=== PATIENT | male | born 1945 | race Caucasian/White ===

== ENCOUNTER 2016-05-20 22:30 | Emergency (ER) | payer OTHER ==
--- NOTE | 2016-05-20 22:45 | PDOC ---
History of Present Illness - General History Source: EMS, Family Exam Limitations: No Limitations - History of Present Illness Initial Comments: 05/21/16 00:36 The patient is a 70 year old male brought via EMS and presenting with daughter, with a significant past medical history of HTN, diabetes (no meds), CVA (x2, last one 4 months ago), HLD, COPD, CAD s/p cardiac stents (x5), bowel and fecal incontinence, who presents to the emergency department with a headache and high blood pressure onset today. The daughter also reports frequency and foul smelling urine. Daughter notes that the patient's blood pressure was 190/100 at home. The patient saw his PMD on 05/10/2016 whom prescribed him azithromycin for chest congestion and sent referrals for cardiology, urology and gastrology, for which all appointments are pending. The patient currently ambulates with the assistance of a walker but he does require a wheelchair. The patient denies chest pain, shortness of breath, and dizziness. Denies fever , chills, nausea, vomit, diarrhea and constipation. Allergies: aspirin Past surgical history: Cardiac stents (x5) Social history: No alcohol, tobacco or drug use reported PMD - Dr. Debbie Adam <Gregory Aggarwal - Last Filed: 05/21/16 00:27> <Sarina Jose - Last Filed: 05/21/16 02:01> - General Chief Complaint: Blood Pressure Problem Stated Complaint: BLOOD PRESSURE PROBLEM Time Seen by Provider: 05/20/16 22:44 Past History <Gregory Aggarwal - Last Filed: 05/21/16 00:27> - Past Medical History Asthma: Yes Cardiac Disorders: Yes (x5 stents) COPD: Yes Dementia: Yes Diabetes: Yes HTN: Yes Hypercholesterolemia: Yes Psychiatric Problems: Yes - Surgical History Cardiac Surgery: ([id number]) - Immunization History Immunization Up to Date: Yes - Psycho/Social/Smoking Cessation Hx Anxiety: No Suicidal Ideation: No Smoking History: Unknown if ever smoked Have you smoked in the past 12 months: No Hx Alcohol Use: No Drug/Substance Use Hx: No Substance Use Type: None Hx Substance Use Treatment: No <Sarina Jose - Last Filed: 05/21/16 02:01> - Past Medical History Allergies/Adverse Reactions: Allergies Allergy/AdvReac Type Severity Reaction Status Date / Time aspirin AdvReac Verified 05/20/16 22:37 Home Medications: Ambulatory Orders Clopidogrel Bisulfate [Clopidogrel] 75 mg PO DAILY 02/24/15 Simvastatin [Zocor -] 20 mg PO HS 02/24/15 Tamsulosin HCl 0.4 mg PO DAILY 02/24/15 Donepezil HCl [Aricept -] 10 mg PO HS 04/18/15 Lisinopril [Prinivil -] 20 mg PO DAILY 04/18/15 Albuterol Sulfate Inhaler - [Ventolin Hfa Inhaler -] 1 - 2 inh PO Q4H PRN Divalproex *ER* [Depakote *ER* -] 500 mg PO BID 08/15/15 Pantoprazole Sodium [Protonix] 40 mg PO DAILY 08/15/15 Phenytoin Na Extended [Dilantin -] 100 mg PO TID 05/20/16 Simvastatin [Zocor -] 20 mg PO HS 05/20/16 Tamsulosin HCl [Flomax] 0.4 mg PO DAILY 05/20/16 Review of Systems - Review of Systems Able to Perform ROS?: Yes Comments:: 05/21/16 00:37 GENERAL/CONSTITUTIONAL: No fever or chills. No weakness. HEAD, EYES, EARS, NOSE AND THROAT: No change in vision. No ear pain or discharge. No sore throat. CARDIOVASCULAR: No chest pain or shortness of breath RESPIRATORY: No cough, wheezing, or hemoptysis. GASTROINTESTINAL: No nausea, vomiting, diarrhea or constipation. GENITOURINARY: +Frequency and foul smelling urine. No dysuria MUSCULOSKELETAL: No joint or muscle swelling or pain. No neck or back pain. SKIN: No rash NEUROLOGIC: +Headache. No vertigo, loss of consciousness, or change in strength/ sensation. ENDOCRINE: No increased thirst. No abnormal weight change HEMATOLOGIC/LYMPHATIC: No anemia, easy bleeding, or history of blood clots. ALLERGIC/IMMUNOLOGIC: No hives or skin allergy. <Gregory Aggarwal - Last Filed: 05/21/16 00:27> *Physical Exam - Vital Signs Last Vital Signs Temp Pulse Resp BP Pulse Ox 97.9 F 60 18 220/110 99 05/20/16 22:43 05/20/16 22:43 05/20/16 22:43 05/20/16 22:43 05/20/16 22:43 - Physical Exam Comments: 05/21/16 00:37 GENERAL: Awake, alert, in no acute distress HEAD: No signs of trauma, normocephalic, atraumatic EYES: PERRLA, EOMI, sclera anicteric, conjunctiva clear ENT: Auricles normal inspection, hearing grossly normal, nares patent, oropharynx clear without exudates. Moist mucosa NECK: Normal ROM, supple, no lymphadenopathy, JVD, or masses LUNGS: No distress, clear to auscultation bilaterally HEART: Regular rate and rhythm, normal S1 and S2, no murmurs, rubs or gallops, peripheral pulses normal and equal bilaterally. ABDOMEN: Soft, nontender, normoactive bowel sounds. No guarding, no rebound. No masses EXTREMITIES: Normal inspection, Normal range of motion, no edema. No clubbing or cyanosis. NEUROLOGICAL: Cranial nerves II through XII grossly intact. No focal sensorimotor deficits SKIN: Warm, Dry, normal turgor, no rashes or lesions noted. <Gregory Aggarwal - Last Filed: 05/21/16 00:27> - Vital Signs Last Vital Signs Temp Pulse Resp BP Pulse Ox 97.9 F 60 18 220/110 99 05/20/16 22:43 05/20/16 22:43 05/20/16 22:43 05/20/16 22:43 05/20/16 22:43 <Sarina Jose - Last Filed: 05/21/16 02:01> ED Treatment Course - LABORATORY CBC & Chemistry Diagram: 05/20/16 23:20 05/20/16 23:20 - ADDITIONAL ORDERS Additional order review: Laboratory Results 05/20/16 23:20 Sodium 142 Potassium 3.8 Chloride 102 Carbon Dioxide 31 Anion Gap 9 BUN 15 D Creatinine 0.9 D Creat Clearance w eGFR > 60 Random Glucose 89 D Calcium 8.3 L Magnesium 2.3 Total Bilirubin 0.3 AST 26 D ALT 31 Alkaline Phosphatase 127 H D Creatine Kinase 51 Troponin I 0.02 Total Protein 6.8 Albumin 3.1 L 05/20/16 23:20 RBC 4.89 MCV 92.6 MCHC 33.5 RDW 14.6 D MPV 7.8 Neutrophils % 43.7 Lymphocytes % 42.6 H D Monocytes % 9.0 Eosinophils % 3.8 Basophils % 0.9 - Medications Given in the ED: ED Medications Discontinued Medications Generic Name Dose Route Start Last Admin Trade Name Michelle PRN Reason Stop Dose Admin Acetaminophen 1,000 mg 05/20/16 22:47 05/20/16 23:24 Ofirmev Injection - IVPB 05/20/16 22:48 1,000 mg ONCE ONE Administration Diphenhydramine HCl 25 mg 05/20/16 22:47 05/20/16 23:24 Benadryl Injection - IVPUSH 05/20/16 22:48 25 mg ONCE ONE Administration Metoclopramide HCl 10 mg 05/20/16 22:47 05/20/16 23:24 Reglan Injection - IVPB 05/20/16 22:48 10 mg ONCE ONE Administration <Gregory Aggarwal - Last Filed: 05/21/16 00:27> - LABORATORY CBC & Chemistry Diagram: 05/20/16 23:20 05/20/16 23:20 <Sarina Jose - Last Filed: 05/21/16 02:01> Medical Decision Making - Medical Decision Making 05/21/16 00:48 70 yo male brought in by daughter because she takes his BP at home and it was elevated, he also had c/o headache. He is alert and speaks to daughter in Khmer -he has no current chest pain. Apparently yesterday he had a fleeting episode of chest pain, none today. ekg is sinus breonna @ 59bpm, old inferior infarct. No change from previous ekg of 09/09/2015. negative cardiac enzymes -pt has h/o dementia and lives w daughter. He is ambulating less and less and recently he was seen by his PCP on 05/10/26 and a wheelchair was ordered for him. -PMH cva,dementia,type 2 diabetes,HTN,hyperlipidemia,urinary and fecal incontinence(wears diaper) blood pressure now 160/80 without any additional blood pressure meds -ROS : daughter said he had some increased frequency. Urinalysis (pt was straight cath) showed rbcs but no bacteria or wbc cbc is normal -pt had no new extremity weakness,no facial droop,no slurred speech 05/21/16 01:22 05/21/16 01:59 pt;s headache resolved, BP came down 160/80 imp tension headache/essential HTN <Sarina Jose - Last Filed: 05/21/16 02:01> *DC/Admit/Observation/Transfer - Attestations Scribe Attestion: 05/21/16 00:38 Documentation prepared by Gregory Aggarwal, acting as expert medical writer for Sarina Jose MD. <Gregory Aggarwal - Last Filed: 05/21/16 00:27> <Sarina Jose - Last Filed: 05/21/16 02:01> Diagnosis at time of Disposition: Hypertension Qualifiers: Hypertension type: essential hypertension Qualified Code(s): I10 - Essential ( primary) hypertension - Discharge Dispostion Disposition: HOME Condition at time of disposition: Stable - Referrals Referrals: Debbie Adam [Primary Care Provider] - - Patient Instructions Printed Discharge Instructions: DI for High Blood Pressure Additional Instructions: -please followup with your doctor this week -take your regular medications -return for recurrent symptoms
[2016-05-20] MEDS ORDERED: ACETAMINOPHEN 1000 MG/100 ML VIAL (NON FORMULARY) IVPB ONE (22:47)
[2016-05-20] MEDS ORDERED: METOCLOPRAMIDE HCL INJECTION 10 MG/2 ML VIAL IVPB ONE (22:47)
[2016-05-20 22:53] VITALS: TEMP 97.9; BMI 26.2
[2016-05-20] MEDS ORDERED: METOCLOPRAMIDE HCL INJECTION 10 MG/2 ML VIAL ONE (23:00)
[2016-05-20] MEDS ORDERED: ACETAMINOPHEN INJECTION 100 ML IVPB ONE (23:00)
[2016-05-20 23:27] LABS: BASOPHIL 0.9 % (0-2.0); EOSINOPHIL 3.8 % (0-4.5); MCHC 33.5 g/dl (32.0-35.9); MEAN CELL VOLUME 92.6 fl (80-96); MEAN PLT VOLUME 7.8 fl (7.5-11.1); NEUTROPHILS 43.7 % (42.8-82.8); PLATELET COUNT 350 K/MM3 (134-434); RDW 14.6 % (11.9-15.9); WHITE BLOOD COUNT 7.1 K/mm3 (4.0-10.0)
[2016-05-21 00:19] LABS: ALBUMIN 3.1 g/dl (3.4-5.0); ANION GAP 9 (8-16); BILIRUBIN,TOTAL 0.3 mg/dL (0.2-1.0); CALCIUM 8.3 mg/dL (8.5-10.1); CO2 31 mmol/L (21-32); CREATININE 0.9 mg/dL (0.7-1.3); GLUCOSE,RANDOM 89 mg/dL (74-106); MAGNESIUM 2.3 mg/dL (1.8-2.4); SGOT/AST 26 U/L (15-37); SGPT/ALT 31 U/L (12-78); TOT PROT 6.8 g/dl (6.4-8.2)
[2016-05-21 00:21] LABS: ALK PHOS 127 U/L (45-117); TROPONIN I 0.02 ng/ml (0.00-0.05)
[2016-05-21 00:24] LABS: URINE APPEARANCE CLEAR; URINE BILIRUBIN NEGATIVE (NEGATIVE); URINE COLOR STRAW; URINE GLUCOSE (UA) NEGATIVE (NEGATIVE); URINE KETONE NEGATIVE (NEGATIVE); URINE LEUK ESTERASE NEGATIVE (NEGATIVE); URINE NITRITE NEGATIVE (NEGATIVE); URINE PROTEIN NEGATIVE (NEGATIVE); URINE UROBILINOGEN NEGATIVE E.U./dl (0.2-1.0)
[2016-05-21 00:24] LABS: INR 1.11 (0.82-1.09); PROTHROMBIN TIME (PATIENT) 12.2 SEC (9.98-11.88)
[2016-05-21 00:29] LABS: URINE BLOOD 3+ (NEGATIVE)
[2016-05-21 00:35] LABS: URINE MUCUS RARE; URINE RBC 259 /hpf (0-3); URINE WBC 4 /hpf (3-5)
[2016-05-21 02:22] VITALS: BP 150/73; PULSE 66
--- NOTE | 2016-05-21 10:26 | EKG ---
Test Reason : Blood Pressure : / mmHG Vent. Rate : 059 BPM Atrial Rate : 059 BPM P-R Int : 164 ms QRS Dur : 112 ms QT Int : 418 ms P-R-T Axes : 052 055 011 degrees QTc Int : 413 ms SINUS BRADYCARDIA POSSIBLE LEFT ATRIAL ENLARGEMENT POSSIBLE INFERIOR INFARCT (CITED ON OR BEFORE 24-FEB-2015) ABNORMAL ECG WHEN COMPARED WITH ECG OF 09-SEP-2015 04:34, PREMATURE VENTRICULAR COMPLEXES ARE NO LONGER PRESENT Confirmed by JOHANNY ALMANZA MD ([id number]) on 05/21/2016 10:26:27 AM Referred By: Confirmed By:JOHANNY ALMANZA MD
== END 2016-05-21 02:22 | disposition home or self-care (01) ==
LOC: JER 22:30
PROC: 3E033NZ Introduction of Analgesics, Hypnotics, Sedatives into Peripheral Vein, Percutaneous Approach (ICD-10-PCS; principal; 2016-05-20)
PROC: 3E033GC Introduction of Other Therapeutic Substance into Peripheral Vein, Percutaneous Approach (ICD-10-PCS; 2016-05-20)
DX: I10 Essential (primary) hypertension (principal); I25.10 Atherosclerotic heart disease of native coronary artery without angina pectoris; Z95.5 Presence of coronary angioplasty implant and graft; E11.9 Type 2 diabetes mellitus without complications; J44.9 Chronic obstructive pulmonary disease, unspecified; F03.90 Unspecified dementia, unspecified severity, without behavioral disturbance, psychotic disturbance, mood disturbance, and anxiety; Z86.73 Personal history of transient ischemic attack (TIA), and cerebral infarction without residual deficits
CPT/HCPCS: 36415; 71020-TC; 80053; 81003; 81015; 82550; 83735; 84484; 85025; 85610; 87086; 93005; 93010; 96374; 96375; 99282-25

== ENCOUNTER 2016-06-05 18:22 | Emergency (ER) | payer OTHER ==
--- NOTE | 2016-06-05 18:27 | PDOC ---
Rapid Medical Evaluation Time Seen by Provider: 06/05/16 18:24 Medical Evaluation: Allergies Allergy/AdvReac Type Severity Reaction Status Date / Time aspirin AdvReac Verified 05/20/16 22:37 06/05/16 18:25 70 yo M w/PMH dementia/Alzheimer's/parlinsons with his daughter c/o SOB since yesterday. Took a few nebulizer w/o much relief. No cp. Albuterol neb tx given in triage/ with relief
[2016-06-05 18:28] VITALS: BMI 23.2
[2016-06-05] MEDS ORDERED: ALBUTEROL SO4 0.083% IH SOL 2.5 MG/3 ML VIAL.NEB. NEB ONE ×2 (19:02→20:02)
[2016-06-05] MEDS ORDERED: MAGNESIUM SULF 50% (8.12 MEQ/2 ML-1 GM VIAL) IVPB ONE (20:02)
[2016-06-05] MEDS ORDERED: ALBUTEROL SO4 2.5/IPRATROPIUM 0.5 INH SOL 3 ML VIAL.NEB. NEB ONE ×3 (20:02→21:30)
[2016-06-05] MEDS ORDERED: ALBUTEROL SO4 2.5/IPRATROPIUM 0.5 INH SOL 3 ML VIAL.NEB. NEB STA ×2 (20:03→23:16)
--- NOTE | 2016-06-05 20:26 | PDOC ---
History of Present Illness - General History Source: Family (daughter ) Exam Limitations: Clinical Condition - History of Present Illness Initial Comments: 06/05/16 20:32 The patient is a 70 year old male with significant past medical history of dementia, CAD s/p cardiac stents x5, hypertension, hyperlipidemia, diabetes (no medications), CVA (x2, last one 4 months ago), COPD, bowel and fecal incontinence who presents to the ED with daughter for 2 days of SOB. As per daughter, at bedside, patient developed some SOB that worsened today. Patient took several nebulizer treatments today with no improvement. Daughter also reports associated dry cough and chest tightness. Daughter denies fever, chest pain, chills, diaphoresis, or lightheadedness. Patient visited PMD today where he was given a 5 days course of prednisone 50mg. Patient took first dose today with minimal improvement. Upon arrival, during triage, patient was given an albuterol treatment with mild relief. Daughter denies any sick contacts. Allergies: aspirin Social History: No alcohol, tobacco, or drug use reported. Past Surgical History: s/p cardiac stents x5 PCP: Dr. Debbie Adam <Ester Harmon - Last Filed: 06/05/16 20:32> - General History Source: Patient, Family <Gregory Shabazz - Last Filed: 06/05/16 23:23> - General Chief Complaint: Shortness of Breath Stated Complaint: SHORTNESS OF BREATH Time Seen by Provider: 06/05/16 18:24 Past History <Ester Harmon - Last Filed: 06/05/16 20:32> - Past Medical History Asthma: Yes Cardiac Disorders: Yes (x5 stents) COPD: Yes Dementia: Yes Diabetes: Yes HTN: Yes Hypercholesterolemia: Yes Psychiatric Problems: Yes (PARKINSONS) - Surgical History Cardiac Surgery: Yes ([id number]) - Immunization History Immunization Up to Date: Yes - Psycho/Social/Smoking Cessation Hx Anxiety: No Suicidal Ideation: No Smoking History: Never smoked Have you smoked in the past 12 months: No Information on smoking cessation initiated: No Hx Alcohol Use: No Drug/Substance Use Hx: No Substance Use Type: None Hx Substance Use Treatment: No <Gregory Shabazz - Last Filed: 06/05/16 23:23> - Past Medical History Allergies/Adverse Reactions: Allergies Allergy/AdvReac Type Severity Reaction Status Date / Time aspirin AdvReac Verified 06/05/16 18:28 Home Medications: Ambulatory Orders Clopidogrel Bisulfate [Clopidogrel] 75 mg PO DAILY 02/24/15 Simvastatin [Zocor -] 20 mg PO HS 02/24/15 Tamsulosin HCl 0.4 mg PO DAILY 02/24/15 Donepezil HCl [Aricept -] 10 mg PO HS 04/18/15 Lisinopril [Prinivil -] 20 mg PO DAILY 04/18/15 Albuterol Sulfate Inhaler - [Ventolin Hfa Inhaler -] 1 - 2 inh PO Q4H PRN Divalproex *ER* [Depakote *ER* -] 500 mg PO BID 08/15/15 Pantoprazole Sodium [Protonix] 40 mg PO DAILY 08/15/15 Phenytoin Na Extended [Dilantin -] 100 mg PO TID 05/20/16 Albuterol 2.5/Ipratropium 0.5 [Duoneb -] 1 neb NEB Q4H #60 vial 06/05/16 Budesonide/Formeterol Fumarate [SYMBICORT 160/4.5mcg -] 1 inh PO BID #1 cannister 06/05/16 Review of Systems - Review of Systems Able to Perform ROS?: No Comments:: 06/05/16 20:33 Limited due to patients clinical condition <EdenEster - Last Filed: 06/05/16 20:32> *Physical Exam - Vital Signs Last Vital Signs Temp Pulse Resp BP Pulse Ox 98.9 F 92 H 20 161/85 96 06/05/16 18:24 06/05/16 18:24 06/05/16 18:24 06/05/16 18:24 06/05/16 18:24 - Physical Exam Comments: 06/05/16 20:33 GENERAL: Well developed, well nourished. Awake and alert. No acute distress. HEENT: Normocephalic, atraumatic. PERRLA, EOMI. No conjunctival pallor. Sclera are non- icteric. Moist mucous membranes. Oropharynx is clear. NECK: Supple. Full ROM. No JVD. Carotid pulses 2+ and symmetric, without bruits. No thyromegaly. No lymphadenopathy. CARDIOVASCULAR: Regular rate and rhythm. No murmurs, rubs, or gallops. Distal pulses are 2+ and symmetric. PULMONARY: No evidence of respiratory distress. Decreased breath sounds bilaterally. Diffuse wheezing and rhonchi bilaterally. ABDOMINAL: Soft. Non-tender. Non-distended. No rebound or guarding. No organomegaly. Normoactive bowel sounds. MUSCULOSKELETAL No bony deformities or tenderness. No CVA tenderness. EXTREMITIES: No cyanosis. No clubbing. No edema. No calf tenderness. SKIN: Warm and dry. Normal capillary refill. No rashes. No jaundice. NEUROLOGICAL: Pt is alert, awake, oriented. Answering questions slowly, but appropriately. <Ester Harmon - Last Filed: 06/05/16 20:32> - Vital Signs Last Vital Signs Temp Pulse Resp BP Pulse Ox 98.9 F 92 H 20 161/85 96 06/05/16 18:24 06/05/16 18:24 06/05/16 18:24 06/05/16 18:24 06/05/16 18:24 <Gregory Shabazz - Last Filed: 06/05/16 23:23> ED Treatment Course - LABORATORY CBC & Chemistry Diagram: 06/05/16 20:20 06/05/16 20:20 - Medications Given in the ED: ED Medications Discontinued Medications Generic Name Dose Route Start Last Admin Trade Name Freq PRN Reason Stop Dose Admin Albuterol Sulfate 1 amp 06/05/16 19:02 06/05/16 20:06 Ventolin 0.083% Nebulizer Soln - NEB 06/05/16 19:03 1 amp ONCE ONE Administration <Ester Harmon - Last Filed: 06/05/16 20:32> - LABORATORY CBC & Chemistry Diagram: 06/05/16 20:20 06/05/16 20:20 - Medications Given in the ED: ED Medications Discontinued Medications Generic Name Dose Route Start Last Admin Trade Name Freq PRN Reason Stop Dose Admin Albuterol Sulfate 1 amp 06/05/16 19:02 06/05/16 20:06 Ventolin 0.083% Nebulizer Soln - NEB 06/05/16 19:03 1 amp ONCE ONE Administration <Gregory Shabazz - Last Filed: 06/05/16 23:23> Medical Decision Making - Medical Decision Making 06/05/16 23:22 Dr. Shabazz: The scribe's documentation has been prepared under my direction and personally reviewed by me in its entirery. I confirm that the note above accurately reflects all work, treatment, procedures, and medical decision making performed by me. patient now feels better after treatment. Pt to be discharged. Rx Duoneb. Pt to follow up with his pcp. <Gregory Shabazz - Last Filed: 06/05/16 23:23> *DC/Admit/Observation/Transfer - Attestations Scribe Attestion: 06/05/16 20:33 Documentation prepared by Ester Harmon, acting as medical physics teacher for Gregory Shabazz MD <Ester Harmon - Last Filed: 06/05/16 20:32> - Discharge Dispostion Admit: No <Gregory Shabazz - Last Filed: 06/05/16 23:23> Diagnosis at time of Disposition: Shortness of breath COPD (chronic obstructive pulmonary disease) Qualifiers: COPD type: unspecified COPD Qualified Code(s): J44.9 - Chronic obstructive pulmonary disease, unspecified - Discharge Dispostion Disposition: HOME Condition at time of disposition: Improved - Prescriptions Prescriptions: Albuterol 2.5/Ipratropium 0.5 [Duoneb -] 1 neb NEB Q4H #60 vial Budesonide/Formeterol Fumarate [SYMBICORT 160/4.5mcg -] 1 inh PO BID #1 cannister - Referrals Referrals: Debbie Adam [Primary Care Provider] - - Patient Instructions Printed Discharge Instructions: DI for Chronic Obstructive Pulmonary Disease Print Language: MONGOLIAN
[2016-06-05 20:30] LABS: BASOPHIL 0.9 % (0-2.0); EOSINOPHIL 0.7 % (0-4.5); MCH 30.3 pg (25.7-33.7); MCHC 32.8 g/dl (32.0-35.9); MEAN CELL VOLUME 92.4 fl (80-96); MEAN PLT VOLUME 8.6 fl (7.5-11.1); NEUTROPHILS 87.7 % (42.8-82.8); PLATELET COUNT 264 K/MM3 (134-434); WHITE BLOOD COUNT 8.5 K/mm3 (4.0-10.0)
[2016-06-05 20:55] LABS: INR 1.03 (0.82-1.09); PROTHROMBIN TIME (PATIENT) 11.3 SEC (9.98-11.88)
[2016-06-05 21:08] LABS: ALBUMIN 3.4 g/dl (3.4-5.0); ALK PHOS 149 U/L (45-117); ANION GAP 10 (8-16); BILIRUBIN,TOTAL 0.3 mg/dL (0.2-1.0); CALCIUM 8.9 mg/dL (8.5-10.1); CO2 31 mmol/L (21-32); CREATININE 1.1 mg/dL (0.7-1.3); GLUCOSE,RANDOM 197 mg/dL (74-106); SGOT/AST 36 U/L (15-37); SGPT/ALT 56 U/L (12-78); TOT PROT 7.4 g/dl (6.4-8.2)
[2016-06-05] MEDS ORDERED: MAGNESIUM SULF 50% (8.12 MEQ/2 ML-1 GM VIAL) ONE (21:09)
[2016-06-05 23:53] VITALS: BP 151/90; PULSE 95; TEMP 98.1
== END 2016-06-05 23:53 | disposition home or self-care (01) ==
LOC: JER 18:22
PROC: 3E0F7GC Introduction of Other Therapeutic Substance into Respiratory Tract, Via Natural or Artificial Opening (ICD-10-PCS; principal; 2016-06-05)
PROC: 3E0F7GC Introduction of Other Therapeutic Substance into Respiratory Tract, Via Natural or Artificial Opening (ICD-10-PCS; 2016-06-05)
PROC: 3E0F7GC Introduction of Other Therapeutic Substance into Respiratory Tract, Via Natural or Artificial Opening (ICD-10-PCS; 2016-06-05)
PROC: 3E0F7GC Introduction of Other Therapeutic Substance into Respiratory Tract, Via Natural or Artificial Opening (ICD-10-PCS; 2016-06-05)
PROC: 3E033GC Introduction of Other Therapeutic Substance into Peripheral Vein, Percutaneous Approach (ICD-10-PCS; 2016-06-05)
DX: J44.9 Chronic obstructive pulmonary disease, unspecified (principal); I25.10 Atherosclerotic heart disease of native coronary artery without angina pectoris; I10 Essential (primary) hypertension; Z95.5 Presence of coronary angioplasty implant and graft; J45.909 Unspecified asthma, uncomplicated; E11.9 Type 2 diabetes mellitus without complications; R78.0 Finding of alcohol in blood; G30.8 Other Alzheimer's disease; G20 Parkinson's disease; F02.80 Dementia in other diseases classified elsewhere, unspecified severity, without behavioral disturbance, psychotic disturbance, mood disturbance, and anxiety
CPT/HCPCS: 36415; 71020-TC; 80053; 85025; 85610; 99285-25

== ENCOUNTER 2016-06-21 17:48 | Inpatient (IN) | payer OTHER ==
--- NOTE | 2016-06-21 17:58 | PDOC ---
History of Present Illness - General Chief Complaint: Shortness of Breath Stated Complaint: THROAT SWELLING Time Seen by Provider: 06/21/16 17:58 History Source: Patient, Family (daughter) Exam Limitations: Clinical Condition - History of Present Illness Initial Comments: 06/21/16 18:23 The patient is a 70 year old male accompanied by his daughter with significant past medical history of diabetes, hypertension, CAD, OR x 2, cardiac stents x5 ( the latest 07/2014 proximal LAD; done at [facility]), Alzheimers, BPH, hyperlipidemia, gastric ulcer, who presents to the emergency department complaining of SOB that started yesterday in the evening. His daughter states that he took nebulizers and Oxygen without any improvement. He was recently seen in ED 2 weeks ago with the same complaint. He denies chest pain, palpitations, abdominal pain, dysuria, N/V, diarrhea, constipation. He denies fever, chills. Past History - Past Medical History Allergies/Adverse Reactions: Allergies Allergy/AdvReac Type Severity Reaction Status Date / Time aspirin AdvReac Verified 06/05/16 18:28 Home Medications: Ambulatory Orders Clopidogrel Bisulfate [Clopidogrel] 75 mg PO DAILY 02/24/15 Simvastatin [Zocor -] 20 mg PO HS 02/24/15 Tamsulosin HCl 0.4 mg PO DAILY 02/24/15 Donepezil HCl [Aricept -] 10 mg PO HS 04/18/15 Lisinopril [Prinivil -] 20 mg PO DAILY 04/18/15 Albuterol Sulfate Inhaler - [Ventolin Hfa Inhaler -] 1 - 2 inh PO Q4H PRN Divalproex *ER* [Depakote *ER* -] 500 mg PO BID 08/15/15 Pantoprazole Sodium [Protonix] 40 mg PO DAILY 08/15/15 Phenytoin Na Extended [Dilantin -] 100 mg PO TID 05/20/16 Albuterol 2.5/Ipratropium 0.5 [Duoneb -] 1 neb NEB Q4H #60 vial 06/05/16 Budesonide/Formeterol Fumarate [SYMBICORT 160/4.5mcg -] 1 inh PO BID #1 cannister 06/05/16 Aspirin [ASA -] 81 mg PO DAILY 03/17/17 Nifedipine [Nifedipine ER] 60 mg PO DAILY 06/21/16 Asthma: Yes Cardiac Disorders: Yes (x5 stents) COPD: Yes Dementia: Yes Diabetes: Yes HTN: Yes Hypercholesterolemia: Yes Psychiatric Problems: Yes (PARKINSONS) - Surgical History Cardiac Surgery: Yes ([id number]) - Immunization History Immunization Up to Date: Yes - Psycho/Social/Smoking Cessation Hx Anxiety: No Suicidal Ideation: No Smoking History: Never smoked Have you smoked in the past 12 months: No Hx Alcohol Use: No Drug/Substance Use Hx: No Substance Use Type: None Hx Substance Use Treatment: No Review of Systems - Review of Systems Able to Perform ROS?: Yes Comments:: 06/21/16 18:47 REVIEW OF SYSTEMS limited, pt is moderate distress due to SOB CONSTITUTIONAL: Absent: fever, chills, diaphoresis, generalized weakness HEENT: Absent: rhinorrhea, nasal congestion, throat pain CARDIOVASCULAR: Absent: chest pain, syncope, palpitations, irregular heart rate RESPIRATORY: shortness of breath, cough, wheezing, Absent: dyspnea with exertion, GASTROINTESTINAL: Absent: abdominal pain, abdominal distension, nausea, vomiting, diarrhea, constipation GENITOURINARY: Absent: dysuria, frequency, urgency, hesitancy, hematuria, flank pain, genital pain NEUROLOGIC: Absent: headache, unsteady gait, bladder or bowel incontinence Is the patient limited Nepali proficient: Yes *Physical Exam - Physical Exam Comments: 06/21/16 18:51 GENERAL: The patient is awake, alert, and fully oriented, in moderate respiratory distress. HEAD: Normal with no signs of trauma. EYES: PERRL, extraocular movements intact, sclera anicteric, conjunctiva clear. No ptosis. ENT: oropharynx clear without exudates, moist mucous membranes. NECK: Trachea midline, full range of motion, supple. LUNGS: Breath sounds equal, wheezing bilaterally, accessory muscle use. HEART: Regular rate and rhythm, S1, S2 without murmur, rub or gallop. ABDOMEN: Soft, nontender, nondistended, normoactive bowel sounds, no guarding, no rebound. EXTREMITIES:no edema. NEUROLOGICAL: Normal speech, no facial asymmetry, gait not observed. PSYCH: Normal mood, normal affect. SKIN: Warm, dry, normal turgor, no rashes or lesions noted 06/21/16 19:19 ED Treatment Course - LABORATORY CBC & Chemistry Diagram: 06/21/16 18:54 06/21/16 18:54 Medical Decision Making - Medical Decision Making 06/21/16 19:10 The pt is complaining of SOB and cough presents with COPD exacerbation. He was given AZT, Solu-medrol, Duonebs, BI-Pap. We ordered CBC, CMP, Influenza swab, Blood cultures. 06/21/16 19:18 The plan is to admit the pt to the hospital. *DC/Admit/Observation/Transfer Diagnosis at time of Disposition: Shortness of breath - Discharge Dispostion Condition at time of disposition: Stable Admit: Yes - Referrals Referrals: Debbie Adam [Primary Care Provider] -
[2016-06-21] MEDS ORDERED: ALBUTEROL SO4 2.5/IPRATROPIUM 0.5 INH SOL 3 ML VIAL.NEB. NEB ONE (18:28)
[2016-06-21] MEDS ORDERED: methylPREDNISolone NA SUCC 125 MG/2 ML VIAL IVPB ONE (18:28)
[2016-06-21] MEDS ORDERED: ALBUTEROL SO4 2.5/IPRATROPIUM 0.5 INH SOL 3 ML VIAL.NEB. NEB PRN (18:34)
[2016-06-21] MEDS ORDERED: methylPREDNISolone NA SUCC 125 MG/2 ML VIAL ONE (18:57)
[2016-06-21] MEDS ORDERED: AZITHROMYCIN IVPB 500 MG in DEXTROSE 5%-WATER - 250 ML IVPB ONE (19:02)
[2016-06-21 19:07] LABS: MCH 30.9 pg (25.7-33.7); MCHC 33.4 g/dl (32.0-35.9); MEAN CELL VOLUME 92.5 fl (80-96); MEAN PLT VOLUME 8.6 fl (7.5-11.1); PLATELET COUNT 286 K/MM3 (134-434); RDW 14.8 % (11.9-15.9); WHITE BLOOD COUNT 8.8 K/mm3 (4.0-10.0)
--- NOTE | 2016-06-21 19:08 | PDOC ---
Attending Attestation - Resident Resident Name: GermanMoraima - ED Attending Attestation I have performed the following: I have examined & evaluated the patient, The case was reviewed & discussed with the resident, I agree w/resident's findings & plan, Exceptions are as noted - HPI HPI: 06/21/16 19:03 70-year-old male with past medical history of diabetes, COPD, hypertension, coronary disease, cardiac stents, Alzheimer's, BPH, hyperlipidemia, gastric ulcer presents with shortness of breath and wheezing since yesterday. Patient reports a yellowish productive cough with wheezing. Denies fevers or chills. Upon arrival, the patient was seen by the ED team and noted to be tachypnea with accessory muscle use and diffuse expiratory wheezing consistent with a COPD exacerbation. Respiratory called for BIPAP. Nebulizers, and steroids ordered. - Physicial Exam PE: 06/21/16 19:03 GENERAL: Awake, alert, and fully oriented. +tachnpeic, audibly wheezy HEAD: No signs of trauma EYES: PERRLA, EOMI, sclera anicteric, conjunctiva clear ENT: Auricles normal inspection, hearing grossly normal, nares patent, oropharynx clear without exudates. NECK: Normal ROM, supple, no lymphadenopathy, JVD, or masses LUNGS: Diffuse expiratory wheezing bilaterally. HEART: Regular rate and rhythm, normal S1 and S2, no murmurs, rubs or gallops ABDOMEN: Soft, nontender, normoactive bowel sounds. No guarding, no rebound. No masses EXTREMITIES: Normal range of motion, no edema. No clubbing or cyanosis. No cords, erythema, or tenderness NEUROLOGICAL: Cranial nerves II through XII grossly intact. Normal speech, normal gait SKIN: Warm, Dry, normal turgor, no rashes or lesions noted. - Medical Decision Making 06/21/16 19:08 ECG: NSR 99, TWI II, III, avF, no std/yesy, QTC 441 msec A&P: This is a 70-year-old male who presents in COPD exacerbation. We'll place on BiPAP. We'll give steroids, nebs, azithromycin. Admit to the hospital. <Lisandro Reynolds - Last Filed: 06/21/16 22:15> Critical Care Time/MDM Note Total Critical Care Time: 45 Critical Care Statement: The care of this patient involved high complexity decision making to prevent further life threatening deterioration of the patient 's condition and/or to evalute & treat vital organ system(s) failure or risk of failure. <Karina Parks - Last Filed: 06/21/16 21:25>
[2016-06-21] MEDS ORDERED: MAGNESIUM SULF 50% (8.12 MEQ/2 ML-1 GM VIAL) IVPB ONE (19:12)
[2016-06-21] MEDS ORDERED: MAGNESIUM SULF 50% (8.12 MEQ/2 ML-1 GM VIAL) ONE (19:38)
[2016-06-21] MEDS ORDERED: AZITHROMYCIN IVPB 250 ML IVPB ONE (19:38)
[2016-06-21] MEDS ORDERED: ALBUTEROL SO4 0.083% IH SOL 2.5 MG/3 ML VIAL.NEB. NEB ONE (20:30)
[2016-06-21 22:04] LABS: ALBUMIN 3.7 g/dl (3.4-5.0); ANION GAP 8 (8-16); CALCIUM 8.9 mg/dL (8.5-10.1); CO2 31 mmol/L (21-32); CREATININE 1.2 mg/dL (0.7-1.3); GLUCOSE,RANDOM 94 mg/dL (74-106); SGOT/AST 18 U/L (15-37); SGPT/ALT 27 U/L (12-78)
[2016-06-21 22:07] LABS: ALK PHOS 132 U/L (45-117); BILIRUBIN,TOTAL 0.4 mg/dL (0.2-1.0); TOT PROT 8.2 g/dl (6.4-8.2); TROPONIN I < 0.02 ng/ml (0.00-0.05)
--- NOTE | 2016-06-21 22:31 | PN ---
<Pilar Terrell - Last Filed: 06/21/16 22:31> Teaching Attending Note Name of Resident: Macy Richard <Rob Charles - Last Filed: 06/22/16 02:39> Teaching Attending Note ATTENDING PHYSICIAN STATEMENT I saw and evaluated the patient. I reviewed the resident's note and discussed the case with the resident. I agree with the resident's findings and plan as documented. SUBJECTIVE: The patient is a 70 year old male accompanied by his daughter who presented to the emergency department complaining of SOB since 06/20/16. His daughter stated that he took nebulizers and Oxygen without any improvement. He was recently seen in ED 2 weeks ago with the similar complaints. The patient reported associated chills but denied chest pain, cough, fever,palpitations, abdominal pain, nausea, vomiting, and diarrhea. The patient is a former long time employee of a tobacco plant and noted symptoms may be secondary to occupational hazards. Past Medical History: Diabetes, hypertension, CAD, OH x 2, cardiac stents x5 (the latest 07/2014 proximal LAD; done at [facility]), Alzheimers, BPH, hyperlipidemia, gastric ulcer, seizure disorder OBJECTIVE: Vital Signs: Last Vital Signs Temp Pulse Resp BP Pulse Ox 98.2 F 80 14 138/83 100 06/21/16 23:44 06/21/16 23:44 06/21/16 23:44 06/21/16 23:44 06/21/16 23:44 Physical Exam: GENERAL: (+) Awake, Alert and oriented x1, in no acute distress HEENT: Atraumatic. PERRLA, EOMI. Moist mucosa. No JVD LUNGS: (+) Scattered wheezing bilaterally HEART: Regular rate and rhythm, normal S1 and S2, no murmurs, rubs or gallops, peripheral pulses normal and equal bilaterally. ABDOMEN: Soft, nontender, normoactive bowel sounds. No guarding, no rebound. No masses EXTREMITIES: Normal inspection, Normal range of motion, no edema. No clubbing or cyanosis. NEUROLOGICAL: Cranial nerves II through XII grossly intact. Normal speech, normal gait, no focal sensorimotor deficits SKIN: Warm, Dry, normal turgor, no rashes or lesions noted. Labs: CBCD WBC 8.8 K/mm3 (4.0-10.0) 06/21/16 18:54 RBC 5.32 M/mm3 (4.00-5.60) 06/21/16 18:54 Hgb 16.4 GM/dL (11.7-16.9) 06/21/16 18:54 Hct 49.2 % (35.4-49) H 06/21/16 18:54 MCV 92.5 fl (80-96) 06/21/16 18:54 MCHC 33.4 g/dl (32.0-35.9) 06/21/16 18:54 RDW 14.8 % (11.9-15.9) 06/21/16 18:54 Plt Count 286 K/MM3 (134-434) 06/21/16 18:54 MPV 8.6 fl (7.5-11.1) 06/21/16 18:54 CMP Sodium 145 mmol/L (136-145) 06/21/16 21:15 Potassium 3.9 mmol/L (3.5-5.1) 06/21/16 21:15 Chloride 106 mmol/L (98-107) 06/21/16 21:15 Carbon Dioxide 31 mmol/L (21-32) 06/21/16 21:15 Anion Gap 8 (8-16) 06/21/16 21:15 BUN 15 mg/dL (7-18) 06/21/16 21:15 Creatinine 1.2 mg/dL (0.7-1.3) 06/21/16 21:15 Creat Clearance w eGFR 59.51 (>60) 06/21/16 21:15 Calcium 8.9 mg/dL (8.5-10.1) 06/21/16 21:15 Total Bilirubin 0.4 mg/dL (0.2-1.0) D 06/21/16 21:15 AST 18 U/L (15-37) D 06/21/16 21:15 ALT 27 U/L (12-78) D 06/21/16 21:15 Alkaline Phosphatase 132 U/L (45-117) H 06/21/16 21:15 Total Protein 8.2 g/dl (6.4-8.2) 06/21/16 21:15 Albumin 3.7 g/dl (3.4-5.0) 06/21/16 21:15 Imagin. Chest X-Ray Impression: No official reading at this time. ASSESSMENT AND PLAN : COPD exacerbation -IV Azithromycin 500 mg daily -40 mg prednisone BID -CXR tomorrow -Duoneb Other Chronic conditions -Continue home medications Admit to med surg. Documentation prepared by Rob Charles, acting as durable medical equipment repairer for Dr. Pilar Terrell MD.
--- NOTE | 2016-06-21 22:35 | PDOC ---
*Physical Exam - Vital Signs Last Vital Signs Temp Pulse Resp BP Pulse Ox 98.5 F 96 H 24 163/103 100 06/21/16 18:01 06/21/16 18:01 06/21/16 18:01 06/21/16 18:01 06/21/16 19:05 ED Treatment Course - LABORATORY CBC & Chemistry Diagram: 06/21/16 18:54 06/21/16 21:15 - ADDITIONAL ORDERS Additional order review: Laboratory Results 06/21/16 06/21/16 21:15 18:54 Sodium 145 Cancelled Potassium 3.9 Cancelled Chloride 106 Cancelled Carbon Dioxide 31 Cancelled Anion Gap 8 Cancelled BUN 15 Cancelled Creatinine 1.2 Cancelled Creat Clearance w eGFR 59.51 Cancelled Random Glucose 94 D Cancelled Calcium 8.9 Cancelled Total Bilirubin 0.4 D Cancelled AST 18 D Cancelled ALT 27 D Cancelled Alkaline Phosphatase 132 H Cancelled Creatine Kinase 54 Troponin I < 0.02 B-Natriuretic Peptide 357.03 H Total Protein 8.2 Cancelled Albumin 3.7 Cancelled 06/21/16 18:17 Influenza Types A,B Antigen (MARILOU) - Final Nasopharyngeal Swab - Final 06/21/16 18:54 RBC 5.32 MCV 92.5 MCHC 33.4 RDW 14.8 MPV 8.6 - RADIOLOGY Radiology Studies Ordered: Category Date Time Status CHEST X-RAY PORTABLE* [RAD] Stat Radiology 06/21/16 19:20 Taken - Medications Given in the ED: ED Medications Discontinued Medications Generic Name Dose Route Start Last Admin Trade Name Freq PRN Reason Stop Dose Admin Albuterol/Ipratropium 1 amp 06/21/16 18:28 06/21/16 18:56 Duoneb - NEB 06/21/16 18:29 1 amp ONCE ONE Administration Azithromycin 500 mg/ Dextrose 250 mls @ 250 mls/hr 06/21/16 19:02 06/21/16 19: 50 IVPB 06/21/16 20:01 250 mls/hr ONCE ONE Administration Magnesium Sulfate 2 gm 06/21/16 19:12 06/21/16 19:55 Magnesium Sulfate IVPB 06/21/16 19:13 2 gm ONCE ONE Administration Methylprednisolone Sodium Succinate 125 mg 06/21/16 18:28 06/21/16 18:59 Solu-Medrol - IVPB 06/21/16 18:29 125 mg ONCE ONE Administration Medical Decision Making - Critical Care Time Total Critical Care Time (minutes): 35 Critical Care Statement: The care of this patient involved high complexity decision making to prevent further life threatening deterioration of the patient 's condition and/or to evalute & treat vital organ system(s) failure or risk of failure. - Medical Decision Making 06/21/16 22:31 CBC, BMP 06/21/16 18:54 06/21/16 21:15 CMP Sodium 145 mmol/L (136-145) 06/21/16 21:15 Potassium 3.9 mmol/L (3.5-5.1) 06/21/16 21:15 Chloride 106 mmol/L (98-107) 06/21/16 21:15 Carbon Dioxide 31 mmol/L (21-32) 06/21/16 21:15 Anion Gap 8 (8-16) 06/21/16 21:15 BUN 15 mg/dL (7-18) 06/21/16 21:15 Creatinine 1.2 mg/dL (0.7-1.3) 06/21/16 21:15 Creat Clearance w eGFR 59.51 (>60) 06/21/16 21:15 Random Glucose 94 mg/dL (74-106) D 06/21/16 21:15 Calcium 8.9 mg/dL (8.5-10.1) 06/21/16 21:15 Total Bilirubin 0.4 mg/dL (0.2-1.0) D 06/21/16 21:15 AST 18 U/L (15-37) D 06/21/16 21:15 ALT 27 U/L (12-78) D 06/21/16 21:15 Alkaline Phosphatase 132 U/L (45-117) H 06/21/16 21:15 Creatine Kinase 54 IU/L (39-308) 06/21/16 21:15 Troponin I < 0.02 ng/ml (0.00-0.05) 06/21/16 21:15 B-Natriuretic Peptide 357.03 pg/ml (5-125) H 06/21/16 21:15 Total Protein 8.2 g/dl (6.4-8.2) 06/21/16 21:15 Albumin 3.7 g/dl (3.4-5.0) 06/21/16 21:15 The patient subsequently was able to wean off the BiPAP but the patient continues to wheezes. He is no longer tachypnea, respiratory distress. Nebs, steroids, magnesium and azithromycin was given. Decision was made to admit the patient to hospital. Case discussed with . She accepts the patient to med/surg admission. Case discussed in detail with admitting physician including history, physical exam and ancillary studies. Admitting physician has assumed care for the patient, will follow all pending diagnostics and will complete the evaluation and treatment. *DC/Admit/Observation/Transfer Diagnosis at time of Disposition: Shortness of breath, Obstructive chronic bronchitis with exacerbation - Discharge Dispostion Condition at time of disposition: Stable Admit: Yes - Referrals Referrals: Debbie Adam [Primary Care Provider] - - Patient Instructions - Post Discharge Activity
--- NOTE | 2016-06-21 23:37 | HP ---
CHIEF COMPLAINT: SOB x 1 day PCP: Dr. Debbie Parra (Saw Dr. Domingo before) HISTORY OF PRESENT ILLNESS: History obtained from patients daughter as he has dementia Patient is a 70 year old male presented to the ED accompanied with his daughter with the chief complaints of shortness of breath for 1 day. A/c to the patients daughter, he was seen in the ED on 06/05/2016 for AE of COPD and was discharged. Since then patient's breathing had improved with the nebulizers but SOB got worse yesterday with wheezing. Had chills but no fever, rigors, sweating, cough , palpitation, abdominal pain, nausea or vomiting. Daughter mentions that patient came from [facility] 2 months ago and has a flight scheduled tomorrow 06/22/2016, would like to get a letter from the hospital. She also mentions that patient had stroke 4-5months ago while he was at [facility]. Went to Neurologist office 2 weeks ago and had scheduled for swallow evaluation which he missed. He is able to eat without choking but has decreased appetite lately. Has a h/o seizure (GTCS) which he developed 2 years ago, last seizure was in September,. Bowel habit normal. Increased frequency of urination, incontinence but no burning urination. (wears diapers) Sleep-Normal ER course was notable for: (1) No fever, no leukocytosis; Hypertensive (163/103 mmHg) (2) ABG (3) Azithromycin; Duoneb, Magnesium 2gm, Solumedrol 125mg Recent Travel: [facility] 2 months ago, flying back to tomorrow PAST MEDICAL HISTORY: Dementia, CAD s/p cardiac stents x5, Hypertension, Hyperlipidemia, Diabetes (no medications), CVA (x2, last one 4 months ago), COPD , bowel and fecal incontinence PAST SURGICAL HISTORY: As mentioned above Social History: Smoking: Quit 20 years ago, smoked 1-2 cigs/day x 4-5 years Alcohol: Occasional Drugs: Denies Family History: Unknown Allergies aspirin Adverse Reaction (Verified 06/05/16 18:28) GI UPSET/PAIN HOME MEDICATIONS: Home Medications Medication Instructions Recorded Clopidogrel Bisulfate [Clopidogrel] 75 mg PO DAILY 02/24/15 Simvastatin [Zocor -] 20 mg PO HS 02/24/15 Tamsulosin HCl 0.4 mg PO DAILY 02/24/15 Donepezil HCl [Aricept -] 10 mg PO HS 04/18/15 Lisinopril [Prinivil -] 20 mg PO DAILY 04/18/15 Albuterol Sulfate Inhaler - 1 - 2 inh PO Q4H PRN 08/15/15 [Ventolin Hfa Inhaler -] Divalproex *ER* [Depakote *ER* -] 500 mg PO BID 08/15/15 Pantoprazole Sodium [Protonix] 40 mg PO DAILY 08/15/15 Phenytoin Na Extended [Dilantin -] 100 mg PO TID 05/20/16 Albuterol 2.5/Ipratropium 0.5 1 neb NEB Q4H #60 vial 06/05/16 [Duoneb -] Budesonide/Formeterol Fumarate 1 inh PO BID #1 cannister 06/05/16 [SYMBICORT 160/4.5mcg -] Aspirin [ASA -] 81 mg PO DAILY 06/21/16 Nifedipine [Nifedipine ER] 60 mg PO DAILY 06/21/16 REVIEW OF SYSTEMS CONSTITUTIONAL: Absent: fever, chills, diaphoresis, generalized weakness, malaise, loss of appetite, weight change HEENT: Absent: rhinorrhea, nasal congestion, throat pain, throat swelling, difficulty swallowing, mouth swelling, ear pain, eye pain, visual changes CARDIOVASCULAR: Absent: chest pain, syncope, palpitations, irregular heart rate, lightheadedness , peripheral edema RESPIRATORY: Present: shortness of breath, wheezing Absent: cough, dyspnea with exertion, orthopnea, stridor, hemoptysis GASTROINTESTINAL: Absent: abdominal pain, abdominal distension, nausea, vomiting, diarrhea, constipation, melena, hematochezia GENITOURINARY: Absent: dysuria, frequency, urgency, hesitancy, hematuria, flank pain, genital pain MUSCULOSKELETAL: Absent: myalgia, arthralgia, joint swelling, back pain, neck pain SKIN: Absent: rash, itching, pallor HEMATOLOGIC/IMMUNOLOGIC: Absent: easy bleeding, easy bruising, lymphadenopathy, frequent infections ENDOCRINE: Absent: unexplained weight gain, unexplained weight loss, heat intolerance, cold intolerance NEUROLOGIC: Absent: headache, focal weakness or paresthesias, dizziness, unsteady gait, seizure, mental status changes, bladder or bowel incontinence PSYCHIATRIC: Absent: anxiety, depression, suicidal or homicidal ideation, hallucinations. PHYSICAL EXAMINATION GENERAL: Elderly male, lying in bed comfortably, Awake, alert, and disoriented ( to time, place, person, oriented to self), in no acute distress, nasal canula in place. HEAD: Normal with no signs of trauma. EYES:EOM intact, no pallor or icterus. EARS, NOSE, THROAT: Ears normal. Moist mucous membranes. NECK: Supple LUNGS: B/L lungs equal entry; scattered wheeze and rhonchi +; no crackles. No accessory muscle use. HEART: Regular rate and rhythm, normal S1 and S2 without murmur, rub or gallop. ABDOMEN: Soft, nontender, not distended, normoactive bowel sounds, no guarding, no rebound, no masses. No hepatomegaly or splenomegaly. MUSCULOSKELETAL: Normal range of motion at all joints. No bony deformities or tenderness. No CVA tenderness. UPPER EXTREMITIES: 2+ pulses, warm, well-perfused. No cyanosis. No clubbing. No peripheral edema. LOWER EXTREMITIES: 2+ pulses, warm, well-perfused. No calf tenderness. No peripheral edema. NEUROLOGICAL: Cranial nerves II-XII intact. Normal speech. Gait not observed. PSYCHIATRIC: Cooperative. Good eye contact. Appropriate mood and affect. SKIN: Warm, dry, normal turgor, no rashes or lesions noted, normal capillary refill. ASSESSMENT/PLAN: Patient is a 70 year old male presented with past medical history of Dementia, CAD s/p cardiac stents x5, Hypertension, Hyperlipidemia, Diabetes (no medications), CVA (x2, last one 4 months ago), COPD, bowel and fecal incontinence to the ED accompanied with his daughter with the chief complaints of shortness of breath for 1 day. # COPD exacerbation Patient presented with SOB and wheezing x 1 day No fever, no leukocytosis ABG- In the ED, patient received Azithromycin; Duoneb, Magnesium 2gm, Solumedrol 125mg Admitted in Med-Surg IV Azithromycin 500mg Daily Continue Prednisone 40mg BID CXR tomorrow Duoneb # CAD s/p cardiac stent Continue aspirin (ordered coated so he doesn't have GI upset which is listed as allergy, statin 20mg HS # CVA Continue Plavix # Hypertension Lisinopril 20mg Daily and Nifedipine 60mg Daily # Diabetes Mellitus Not on any meds since 2 years, as per doctors recommendation Finger stick glucose monitoring Insulin sliding scale # Seizure (last seizure in September,) Continue Phenytoin 100mg TID # BPH Continue Tamsulocin # Alzheimers Continue Donepezil. # FEN Not on IV fluids Electrolytes to be repeated tomorrow Dyphagia puree diet # Prophylaxis For DVT- Heparin sq For GI: On Pantoprazole # Code status: Full code # Dispo: Admitted in Med-Surg. Duration of stay unknown Patient has a flight to [place]. Since he has to cancel it, wants to get a letter from the physician upon discharge. Illness, Investigation and Plan of care explained to the patient and his daughter. They verbalized understanding. Case discussed with Dr. Terrell. Visit type - Emergency Visit Emergency Visit: Yes ED Registration Date: 06/21/16 Care time: The patient presented to the Emergency Department on the above date and was hospitalized for further evaluation of their emergent condition. - New Patient This patient is new to me today: Yes Date on this admission: 06/21/16 - Critical Care Critical Care patient: No
[2016-06-22 00:39] LABS: ARTERIAL BLD GAS O2 SATURATION 99.3 % (90-98.9); ARTERIAL BLOOD GAS BASE EXCESS 2.2 meq/l (-2-2); ARTERIAL BLOOD GAS HCO3 27.5 meq/L (22-26); ARTERIAL BLOOD GAS pH 7.39 (7.35-7.45)
[2016-06-22 00:40] LABS: ALLENS TEST POSITIVE; ART PUNCT SITE LEFT RADIAL; METHEMOGLOBIN 0.5 % (0.4-1.5); PT. ON O2? YES
[2016-06-22 00:41] LABS: LPM/O2% 3; TYPE OF O2 NASAL CANNULA
[2016-06-22 02:19] VITALS: BMI 25.8
[2016-06-22] MEDS: LISINOPRIL 20 MG TABLET (FP) PO SCH ×2 (03:23→11:16)
[2016-06-22] MEDS: ALBUTEROL SO4 0.083% IH SOL 2.5 MG/3 ML VIAL.NEB. NEB SCH ×4 (05:45→19:22)
[2016-06-22] MEDS: PHENYTOIN NA EXTENDED 100 MG CAPSULE (FP) PO SCH ×3 (06:34→22:13)
[2016-06-22] MEDS: INSULIN SLIDING SCALE (NOVOLOG) 1 VIAL SQ SCH ×4 (07:02→21:46)
[2016-06-22 07:35] LABS: BASOPHIL 0.3 % (0-2.0); MCH 30.8 pg (25.7-33.7); MCHC 33.3 g/dl (32.0-35.9); MEAN CELL VOLUME 92.7 fl (80-96); MEAN PLT VOLUME 8.4 fl (7.5-11.1); NEUTROPHILS 82.4 % (42.8-82.8); PLATELET COUNT 249 K/MM3 (134-434); RDW 14.6 % (11.9-15.9); WHITE BLOOD COUNT 8.7 K/mm3 (4.0-10.0)
[2016-06-22 07:51] LABS: ALBUMIN 3.1 g/dl (3.4-5.0); CALCIUM 8.7 mg/dL (8.5-10.1); MAGNESIUM 2.5 mg/dL (1.8-2.4)
[2016-06-22 07:55] LABS: BILIRUBIN,TOTAL 0.5 mg/dL (0.2-1.0); CREATININE 1.3 mg/dL (0.7-1.3); PHOSPHOROUS 2.4 mg/dL (2.5-4.9); TOT PROT 6.7 g/dl (6.4-8.2)
[2016-06-22 07:58] LABS: INR 1.06 (0.82-1.09); PROTHROMBIN TIME (PATIENT) 11.7 SEC (9.98-11.88)
[2016-06-22 08:01] LABS: ACTIVATED PTT 35.1 SECONDS (26.9-34.4)
[2016-06-22] MEDS ORDERED: ASPIRIN 81 MG CHEWABLE TABLETS PO SCH (10:00)
[2016-06-22] MEDS ORDERED: predniSONE 20 MG TABLET (UD) PO SCH ×2 (10:00)
[2016-06-22] MEDS: AZITHROMYCIN IVPB 250 ML IVPB SCH (11:12)
[2016-06-22] MEDS: PANTOPRAZOLE 40 MG TABLET (FP) PO SCH (11:15)
[2016-06-22] MEDS: BUDESONIDE/FORMETEROL FUMARATE 160/4.5 mcg INHALER IH SCH ×2 (11:15→21:47)
[2016-06-22] MEDS: CLOPIDOGREL BISULFATE 75 MG TABLET (FP) PO SCH (11:16)
[2016-06-22] MEDS: TAMSULOSIN HCL 0.4 MG CAP.ER.24H (FP) PO SCH (11:16)
[2016-06-22] MEDS: NIFEdipine E.R 60 MG TABLET (UD) PO SCH (11:16)
[2016-06-22] MEDS: ASPIRIN COATED 81 MG TABLET.EC PO SCH (11:16)
[2016-06-22] MEDS: DIVALPROEX NA *ER* EXTEND REL 500 MG TABLET.SA (FP) PO SCH ×2 (14:55→21:46)
--- NOTE | 2016-06-22 17:14 | PN ---
Physical Exam: SUBJECTIVE: Patient seen and examined Patient is nigerien speaking male, feeling weak, positive for wheezing. OBJECTIVE: Vital Signs Temperature 98.6 F 06/22/16 15:04 Pulse Rate 77 06/22/16 15:04 Respiratory Rate 18 06/22/16 15:04 Blood Pressure 126/76 06/22/16 05:58 O2 Sat by Pulse Oximetry (%) 100 06/22/16 03:09 GENERAL: The patient is awake, alert, and fully oriented, in no acute distress. HEAD: Normal with no signs of trauma. EYES: PERRL, extraocular movements intact, sclera anicteric, conjunctiva clear. ENT: Ears normal, oropharynx clear without exudates, moist mucous membranes. NECK: Trachea midline, full range of motion, supple. LUNGS: decreased Breath sounds at the basis , positive for scattered wheezes, no crackles, no accessory muscle use. HEART: Regular rate and rhythm, S1, S2 without murmur, rub or gallop. ABDOMEN: Soft, nontender, nondistended, normoactive bowel sounds, no hepatosplenomegaly, no masses appreciated. EXTREMITIES: 2+ pulses, warm, well-perfused, no edema. NEUROLOGICAL: Cranial nerves II through XII grossly intact. Normal speech, gait not observed. PSYCH: Normal mood, normal affect. SKIN: Warm, dry, normal turgor, no rashes or lesions noted CBCD WBC 8.7 K/mm3 (4.0-10.0) 06/22/16 06:00 RBC 4.88 M/mm3 (4.00-5.60) 06/22/16 06:00 Hgb 15.0 GM/dL (11.7-16.9) 06/22/16 06:00 Hct 45.2 % (35.4-49) 06/22/16 06:00 MCV 92.7 fl (80-96) 06/22/16 06:00 MCHC 33.3 g/dl (32.0-35.9) 06/22/16 06:00 RDW 14.6 % (11.9-15.9) 06/22/16 06:00 Plt Count 249 K/MM3 (134-434) 06/22/16 06:00 MPV 8.4 fl (7.5-11.1) 06/22/16 06:00 CMP Sodium 142 mmol/L (136-145) 06/22/16 06:00 Potassium 4.2 mmol/L (3.5-5.1) 06/22/16 06:00 Chloride 104 mmol/L (98-107) 06/22/16 06:00 Carbon Dioxide 30 mmol/L (21-32) 06/22/16 06:00 Anion Gap 8 (8-16) 06/22/16 06:00 BUN 20 mg/dL (7-18) H D 06/22/16 06:00 Creatinine 1.3 mg/dL (0.7-1.3) 06/22/16 06:00 Creat Clearance w eGFR 54.26 (>60) 06/22/16 06:00 Random Glucose 195 mg/dL (74-106) H D 06/22/16 06:00 Calcium 8.7 mg/dL (8.5-10.1) 06/22/16 06:00 Total Bilirubin 0.5 mg/dL (0.2-1.0) D 06/22/16 06:00 AST 11 U/L (15-37) L D 06/22/16 06:00 ALT 22 U/L (12-78) 06/22/16 06:00 Alkaline Phosphatase 106 U/L (45-117) 06/22/16 06:00 Total Protein 6.7 g/dl (6.4-8.2) 06/22/16 06:00 Albumin 3.1 g/dl (3.4-5.0) L 06/22/16 06:00 CARDIAC ENZYMES Creatine Kinase 54 IU/L (39-308) 06/21/16 21:15 Troponin I < 0.02 ng/ml (0.00-0.05) 06/21/16 21:15 Home Medications Medication Instructions Recorded Clopidogrel Bisulfate [Clopidogrel] 75 mg PO DAILY 02/24/15 Simvastatin [Zocor -] 20 mg PO HS 02/24/15 Tamsulosin HCl 0.4 mg PO DAILY 02/24/15 Donepezil HCl [Aricept -] 10 mg PO HS 04/18/15 Lisinopril [Prinivil -] 20 mg PO DAILY 04/18/15 Albuterol Sulfate Inhaler - 1 - 2 inh PO Q4H PRN 08/15/15 [Ventolin Hfa Inhaler -] Divalproex *ER* [Depakote *ER* -] 500 mg PO BID 08/15/15 Pantoprazole Sodium [Protonix] 40 mg PO DAILY 08/15/15 Phenytoin Na Extended [Dilantin -] 100 mg PO TID 05/20/16 Albuterol 2.5/Ipratropium 0.5 1 neb NEB Q4H #60 vial 06/05/16 [Duoneb -] Budesonide/Formeterol Fumarate 1 inh PO BID #1 cannister 06/05/16 [SYMBICORT 160/4.5mcg -] Aspirin [ASA -] 81 mg PO DAILY 06/21/16 Nifedipine [Nifedipine ER] 60 mg PO DAILY 06/21/16 Active Medications Generic Name Dose Route Start Last Admin Trade Name Freq PRN Reason Stop Dose Admin Albuterol Sulfate 1 amp 06/22/16 00:00 06/22/16 11:14 Ventolin 0.083% Nebulizer Soln - NEB 1 amp QIDR MYRTLE Administration Albuterol/Ipratropium 1 amp 06/21/16 18:34 Duoneb - NEB QIDR PRN SHORT OF BREATH/WHEEZING Aspirin 81 mg 06/22/16 10:00 06/22/16 11:16 Ecotrin - PO 81 mg DAILY MYRTLE Administration Atorvastatin Calcium 10 mg 06/22/16 22:00 Lipitor - PO HS MYRTLE Budesonide/Formoterol Fumarate 1 puff 06/22/16 10:00 06/22/16 11:15 Symbicort 160/4.5mcg - IH 1 puff BID MYRTLE Administration Clopidogrel Bisulfate 75 mg 06/22/16 10:00 06/22/16 11:16 Plavix - PO 75 mg DAILY MYRTLE Administration Divalproex Sodium 500 mg 06/22/16 10:00 06/22/16 14:55 Depakote *Er* - PO 500 mg BID MYRTLE Administration Donepezil HCl 10 mg 06/22/16 22:00 Aricept - PO HS MYRTLE Azithromycin 250 mls @ 250 mls/hr 06/22/16 10:00 06/22/16 11:12 Zithromax 500mg Ivpb (Pre-Docked) IVPB 250 mls/hr DAILY MYRTLE Administration Insulin Aspart 1 vial 06/22/16 07:00 06/22/16 12:14 Novolog Vial Sliding Scale - SQ 2 units ACHS MYRTLE Administration Protocol Lisinopril 20 mg 06/22/16 01:30 06/22/16 11:16 Prinivil PO 20 mg DAILY MYRTLE Administration Nifedipine 60 mg 06/22/16 10:00 06/22/16 11:16 Procardia Xl - PO 60 mg DAILY MYRTLE Administration Pantoprazole Sodium 40 mg 06/22/16 10:00 06/22/16 11:15 Protonix - PO 40 mg DAILY MYRTLE Administration Phenytoin Sodium 100 mg 06/22/16 06:00 06/22/16 06:34 Dilantin - PO 100 mg TID MYRTLE Administration Prednisone 40 mg 06/22/16 10:00 06/22/16 11:16 Deltasone - PO 40 mg BID MYRTLE Administration Tamsulosin HCl 0.4 mg 06/22/16 10:00 06/22/16 11:16 Flomax - PO 0.4 mg DAILY MYRTLE Administration ASSESSMENT/PLAN: Patient is a 70 year old male presented with past medical history of Dementia, CAD s/p cardiac stents x5, Hypertension, Hyperlipidemia, Diabetes (no medications), CVA (x2, last one 4 months ago), COPD, bowel and fecal incontinence to the ED accompanied with his daughter with the chief complaints of shortness of breath for 1 day. # Acute COPD exacerbation will switch from po Prednisone to IV Solu Medrol since patient is having scattered wheezing, continue with IV Zithromax # CAD s/p cardiac stent continue aspirin ;no issues with EC ASA # CVA continue Plavix # Hypertension lisinopril 20mg Daily and Nifedipine 60mg Daily continue #T2DM continue with SS with coverage # Seizure (last seizure in September,) continue Phenytoin 100mg TID # BPH continue Tamsulocin # Alzheimers continue Donepezil. DVT Px: SCds, heparin sq Visit type - Emergency Visit Emergency Visit: Yes ED Registration Date: 06/21/16 Care time: The patient presented to the Emergency Department on the above date and was hospitalized for further evaluation of their emergent condition. - New Patient This patient is new to me today: Yes Date on this admission: 06/22/16 - Critical Care Critical Care patient: Yes Total Critical Care Time (in minutes): 35 Critical Care Statement: The care of this patient involved high complexity decision making to prevent further life threatening deterioration of the patient 's condition and/or to evalute & treat vital organ system(s) failure or risk of failure. - Discharge Referral Referred to [facility] Med P.C.: Yes Physician Referral: Pradeep Meraz MD ([facility])
[2016-06-22] MEDS ORDERED: PT OWN MED DRAWER 7, Y5N ONE ×2 (18:31→21:42)
[2016-06-22] MEDS: methylPREDNISolone NA SUCC 40 MG/1 ML VIAL IVPB SCH (18:38)
[2016-06-22] MEDS ORDERED: INSULIN (NOVOLOG) ASPART 100 UNITS/ML 10ML VIAL ONE (21:45)
[2016-06-22] MEDS: ATORVASTATIN CA 10 MG TABLET (FP) PO SCH (21:46)
[2016-06-22] MEDS: DONEPEZIL HCL 5 MG TABLET (FP) PO SCH (21:47)
[2016-06-23] MEDS: methylPREDNISolone NA SUCC 40 MG/1 ML VIAL IVPB SCH ×3 (01:14→21:29)
[2016-06-23] MEDS: ALBUTEROL SO4 0.083% IH SOL 2.5 MG/3 ML VIAL.NEB. NEB SCH ×5 (06:10→23:04)
[2016-06-23] MEDS: PHENYTOIN NA EXTENDED 100 MG CAPSULE (FP) PO SCH ×3 (06:10→21:29)
[2016-06-23] MEDS: INSULIN SLIDING SCALE (NOVOLOG) 1 VIAL SQ SCH ×4 (06:11→21:29)
[2016-06-23] MEDS: NIFEdipine E.R 60 MG TABLET (UD) PO SCH (10:55)
[2016-06-23] MEDS: AZITHROMYCIN IVPB 250 ML IVPB SCH (10:55)
[2016-06-23] MEDS: TAMSULOSIN HCL 0.4 MG CAP.ER.24H (FP) PO SCH (10:55)
[2016-06-23] MEDS: LISINOPRIL 20 MG TABLET (FP) PO SCH (10:55)
[2016-06-23] MEDS: PANTOPRAZOLE 40 MG TABLET (FP) PO SCH (10:55)
[2016-06-23] MEDS: ASPIRIN COATED 81 MG TABLET.EC PO SCH (10:56)
[2016-06-23] MEDS: BUDESONIDE/FORMETEROL FUMARATE 160/4.5 mcg INHALER IH SCH (10:56)
[2016-06-23] MEDS: CLOPIDOGREL BISULFATE 75 MG TABLET (FP) PO SCH (10:56)
[2016-06-23] MEDS: DIVALPROEX NA *ER* EXTEND REL 500 MG TABLET.SA (FP) PO SCH ×2 (10:56→21:29)
--- NOTE | 2016-06-23 11:21 | EKG ---
Test Reason : Blood Pressure : / mmHG Vent. Rate : 099 BPM Atrial Rate : 099 BPM P-R Int : 166 ms QRS Dur : 104 ms QT Int : 344 ms P-R-T Axes : 065 086 -26 degrees QTc Int : 441 ms POOR DATA QUALITY, INTERPRETATION MAY BE ADVERSELY AFFECTED NORMAL SINUS RHYTHM POSSIBLE LEFT ATRIAL ENLARGEMENT CANNOT RULE OUT INFERIOR INFARCT (CITED ON OR BEFORE 24-FEB-2015) ABNORMAL ECG WHEN COMPARED WITH ECG OF 20-MAY-2016 23:19, VENT. RATE HAS INCREASED BY 40 BPM T WAVE INVERSION MORE EVIDENT IN INFERIOR LEADS Confirmed by CHRISTINA MORELAND MD [id number]) on 06/23/2016 11:21:05 AM Referred By: Confirmed By:CHRISTINA MORELAND MD
--- NOTE | 2016-06-23 13:19 | DS ---
Physical Exam: SUBJECTIVE: Patient seen and examined Patient is feeling better, no further wheezing. OBJECTIVE: Vital Signs Temperature 98.5 F 06/23/16 10:00 Pulse Rate 76 06/23/16 10:00 Respiratory Rate 18 06/23/16 10:00 Blood Pressure 120/74 06/23/16 10:00 O2 Sat by Pulse Oximetry (%) 100 06/22/16 21:00 PHYSICAL EXAM GENERAL: The patient is awake, alert, and fully oriented, in no acute distress. HEAD: Normal with no signs of trauma. EYES: PERRL, extraocular movements intact, sclera anicteric, conjunctiva clear. ENT: Ears normal, nares patent, oropharynx clear without exudates, moist mucous membranes. NECK: Trachea midline, full range of motion, supple. LUNGS: Breath sounds equal, clear to auscultation bilaterally, no wheezes, no crackles, no accessory muscle use. HEART: Regular rate and rhythm, S1, S2 without murmur, rub or gallop. ABDOMEN: Soft, nontender, nondistended, normoactive bowel sounds, no guarding, no rebound, no hepatosplenomegaly, no masses. EXTREMITIES: 2+ pulses, warm, well-perfused, no edema. NEUROLOGICAL: Cranial nerves II through XII grossly intact. Normal speech, gait not observed. PSYCH: Normal mood, normal affect. SKIN: Warm, dry, normal turgor, no rashes or lesions noted. LABS Laboratory Results - last 24 hr 06/22/16 06/22/16 06/23/16 16:49 21:19 05:44 POC Glucometer 159 206 200 CBCD WBC 8.7 K/mm3 (4.0-10.0) 06/22/16 06:00 RBC 4.88 M/mm3 (4.00-5.60) 06/22/16 06:00 Hgb 15.0 GM/dL (11.7-16.9) 06/22/16 06:00 Hct 45.2 % (35.4-49) 06/22/16 06:00 MCV 92.7 fl (80-96) 06/22/16 06:00 MCHC 33.3 g/dl (32.0-35.9) 06/22/16 06:00 RDW 14.6 % (11.9-15.9) 06/22/16 06:00 Plt Count 249 K/MM3 (134-434) 06/22/16 06:00 MPV 8.4 fl (7.5-11.1) 06/22/16 06:00 CMP Sodium 142 mmol/L (136-145) 06/22/16 06:00 Potassium 4.2 mmol/L (3.5-5.1) 06/22/16 06:00 Chloride 104 mmol/L (98-107) 06/22/16 06:00 Carbon Dioxide 30 mmol/L (21-32) 06/22/16 06:00 Anion Gap 8 (8-16) 06/22/16 06:00 BUN 20 mg/dL (7-18) H D 06/22/16 06:00 Creatinine 1.3 mg/dL (0.7-1.3) 06/22/16 06:00 Creat Clearance w eGFR 54.26 (>60) 06/22/16 06:00 Random Glucose 195 mg/dL (74-106) H D 06/22/16 06:00 Calcium 8.7 mg/dL (8.5-10.1) 06/22/16 06:00 Total Bilirubin 0.5 mg/dL (0.2-1.0) D 06/22/16 06:00 AST 11 U/L (15-37) L D 06/22/16 06:00 ALT 22 U/L (12-78) 06/22/16 06:00 Alkaline Phosphatase 106 U/L (45-117) 06/22/16 06:00 Total Protein 6.7 g/dl (6.4-8.2) 06/22/16 06:00 Albumin 3.1 g/dl (3.4-5.0) L 06/22/16 06:00 CARDIAC ENZYMES Creatine Kinase 54 IU/L (39-308) 06/21/16 21:15 Troponin I < 0.02 ng/ml (0.00-0.05) 06/21/16 21:15 Current Medications Generic Name Dose Route Start Last Admin Trade Name Freq PRN Reason Stop Dose Admin Albuterol Sulfate 1 amp 06/22/16 00:00 06/23/16 11:26 Ventolin 0.083% Nebulizer Soln - NEB 1 amp QIDR MYRTLE Administration Albuterol/Ipratropium 1 amp 06/21/16 18:34 Duoneb - NEB QIDR PRN SHORT OF BREATH/WHEEZING Aspirin 81 mg 06/22/16 10:00 06/23/16 10:56 Ecotrin - PO 81 mg DAILY MYRTLE Administration Atorvastatin Calcium 10 mg 06/22/16 22:00 06/22/16 21:46 Lipitor - PO 10 mg HS MYRTLE Administration Cefuroxime Axetil 250 mg 06/23/16 22:00 Ceftin - PO BID [facility] Clopidogrel Bisulfate 75 mg 06/22/16 10:00 06/23/16 10:56 Plavix - PO 75 mg DAILY MYRTLE Administration Divalproex Sodium 500 mg 06/22/16 10:00 06/23/16 10:56 Depakote *Er* - PO 500 mg BID MYRTLE Administration Donepezil HCl 10 mg 06/22/16 22:00 06/22/16 21:47 Aricept - PO 10 mg HS MYRTLE Administration Azithromycin 250 mls @ 250 mls/hr 06/22/16 10:00 06/23/16 10:55 Zithromax 500mg Ivpb (Pre-Docked) IVPB 250 mls/hr DAILY MYRTLE Administration Insulin Aspart 1 vial 06/22/16 07:00 06/23/16 11:39 Novolog Vial Sliding Scale - SQ 6 units ACHS MYRTLE Administration Protocol Lisinopril 20 mg 06/22/16 01:30 06/23/16 10:55 Prinivil PO 20 mg DAILY MYRTLE Administration Methylprednisolone Sodium Succinate 40 mg 06/22/16 18:00 06/23/16 10:55 Solu-Medrol - IVPB 40 mg Q8H-IV MYRTLE Administration Nifedipine 60 mg 06/22/16 10:00 06/23/16 10:55 Procardia Xl - PO 60 mg DAILY MYRTLE Administration Pantoprazole Sodium 40 mg 06/22/16 10:00 06/23/16 10:55 Protonix - PO 40 mg DAILY MYRTLE Administration Phenytoin Sodium 100 mg 06/22/16 06:00 06/23/16 06:10 Dilantin - PO 100 mg TID MYRTLE Administration Fluticasone/Salmeterol 1 puff 06/23/16 22:00 Advair 100mcg/50mcg - IH BID MYRTLE Tamsulosin HCl 0.4 mg 06/22/16 10:00 06/23/16 10:55 Flomax - PO 0.4 mg DAILY MYRTLE Administration Home Medications Medication Instructions Recorded Clopidogrel Bisulfate [Clopidogrel] 75 mg PO DAILY 02/24/15 Simvastatin [Zocor -] 20 mg PO HS 02/24/15 Tamsulosin HCl 0.4 mg PO DAILY 02/24/15 Donepezil HCl [Aricept -] 10 mg PO HS 04/18/15 Lisinopril [Prinivil -] 20 mg PO DAILY 04/18/15 Albuterol Sulfate Inhaler - 1 - 2 inh PO Q4H PRN 08/15/15 [Ventolin HFA Inhaler -] Divalproex *ER* [Depakote *ER* -] 500 mg PO BID 08/15/15 Pantoprazole Sodium [Protonix] 40 mg PO DAILY 08/15/15 Phenytoin Na Extended [Dilantin -] 100 mg PO TID 05/20/16 Albuterol 2.5/Ipratropium 0.5 1 neb NEB Q4H #60 vial 06/05/16 [Duoneb -] Aspirin [ASA -] 81 mg PO DAILY 06/21/16 Nifedipine [Nifedipine ER] 60 mg PO DAILY 06/21/16 Albuterol 2.5/Ipratropium 0.5 1 amp NEB QIDR PRN #0 amp 06/23/16 [Duoneb -] Aspirin Coated [Ecotrin -] 81 mg PO DAILY 06/23/16 Nifedipine ER [Procardia XL -] 60 mg PO DAILY 06/23/16 Prednisone [Deltasone -] 10 mg PO DAILY #13 tablet 06/23/16 Salmeterol/Fluticasone [Advair 1 puff IH BID #120 inhaler 06/23/16 100Mcg/50Mcg -] HOSPITAL COURSE: Date of Admission:06/21/16 Date of Discharge: 06/23/16 Patient is a 70 year old male presented with past medical history of Dementia, CAD s/p cardiac stents x5, Hypertension, Hyperlipidemia, Diabetes (no medications), CVA (x2, last one 4 months ago), COPD, bowel and fecal incontinence to the ED accompanied with his daughter with the chief complaints of shortness of breath for 1 day. # Acute COPD exacerbation Patient presented with SOB and wheezing x 1 day No fever, no leukocytosis ABG- In the ED, patient received Azithromycin; Duoneb, Magnesium 2gm, Solumedrol 125mg Admitted in Med-Surg IV Azithromycin 500mg Daily Continue Prednisone 40mg BID CXR tomorrow Duoneb # CAD s/p cardiac stent Continue aspirin (ordered coated so he doesn't have GI upset which is listed as allergy, statin 20mg HS # CVA Continue Plavix # Hypertension Lisinopril 20mg Daily and Nifedipine 60mg Daily # Diabetes Mellitus Not on any meds since 2 years, as per doctors recommendation Finger stick glucose monitoring Insulin sliding scale # Seizure (last seizure in September,) Continue Phenytoin 100mg TID # BPH Continue Tamsulocin # Alzheimers Continue Donepezil. Discharge Summary Reason For Visit: SOB Current Active Problems COPD with exacerbation (Acute) Shortness of breath (Acute) Condition: Stable - Instructions Diet, Activity, Other Instructions: Continue taking the steroid daily until finished Referrals: Debbie Adam [Primary Care Provider] - Ziggy Weaver MD [Staff Physician] - Disposition: HOME - Home Medications Comprehensive Discharge Medication List: Ambulatory Orders Clopidogrel Bisulfate [Clopidogrel] 75 mg PO DAILY 02/24/15 Simvastatin [Zocor -] 20 mg PO HS 02/24/15 Tamsulosin HCl 0.4 mg PO DAILY 02/24/15 Donepezil HCl [Aricept -] 10 mg PO HS 04/18/15 Lisinopril [Prinivil -] 20 mg PO DAILY 04/18/15 Albuterol Sulfate Inhaler - [Ventolin HFA Inhaler -] 1 - 2 inh PO Q4H PRN Divalproex *ER* [Depakote *ER* -] 500 mg PO BID 08/15/15 Pantoprazole Sodium [Protonix] 40 mg PO DAILY 08/15/15 Phenytoin Na Extended [Dilantin -] 100 mg PO TID 05/20/16 Albuterol 2.5/Ipratropium 0.5 [Duoneb -] 1 neb NEB Q4H #60 vial 06/05/16 Aspirin [ASA -] 81 mg PO DAILY 06/21/16 Nifedipine [Nifedipine ER] 60 mg PO DAILY 06/21/16 Albuterol 2.5/Ipratropium 0.5 [Duoneb -] 1 amp NEB QIDR PRN #0 amp 06/23/16 Aspirin Coated [Ecotrin -] 81 mg PO DAILY 06/23/16 Nifedipine ER [Procardia XL -] 60 mg PO DAILY 06/23/16 Prednisone [Deltasone -] 10 mg PO DAILY #13 tablet 06/23/16 Salmeterol/Fluticasone [Advair 100Mcg/50Mcg -] 1 puff IH BID #120 inhaler
--- NOTE | 2016-06-23 13:38 | PN ---
Physical Exam: SUBJECTIVE: Patient seen and examined Patient is better than yesterday. no fever or chills OBJECTIVE: Vital Signs Temperature 98.5 F 06/23/16 10:00 Pulse Rate 76 06/23/16 10:00 Respiratory Rate 18 06/23/16 10:00 Blood Pressure 120/74 06/23/16 10:00 O2 Sat by Pulse Oximetry (%) 100 06/22/16 21:00 GENERAL: The patient is awake, alert, and fully oriented, in no acute distress. HEAD: Normal with no signs of trauma. EYES: PERRL, extraocular movements intact, sclera anicteric, conjunctiva clear. ENT: Ears normal, oropharynx clear without exudates, moist mucous membranes. NECK: Trachea midline, full range of motion, supple. LUNGS: decreased Breath sounds at the basis , no wheezes, no crackles, no accessory muscle use. HEART: Regular rate and rhythm, S1, S2 without murmur, rub or gallop. ABDOMEN: Soft, nontender, nondistended, normoactive bowel sounds, no hepatosplenomegaly, no masses appreciated. EXTREMITIES: 2+ pulses, warm, well-perfused, no edema. NEUROLOGICAL: Cranial nerves II through XII grossly intact. Normal speech, gait not observed. PSYCH: Normal mood, normal affect. SKIN: Warm, dry, normal turgor, no rashes or lesions noted Laboratory Results - last 24 hr 06/22/16 06/22/16 06/23/16 16:49 21:19 05:44 POC Glucometer 159 206 200 Active Medications Generic Name Dose Route Start Last Admin Trade Name Freq PRN Reason Stop Dose Admin Albuterol Sulfate 1 amp 06/22/16 00:00 06/23/16 11:26 Ventolin 0.083% Nebulizer Soln - NEB 1 amp QIDR MYRTLE Administration Albuterol/Ipratropium 1 amp 06/21/16 18:34 Duoneb - NEB QIDR PRN SHORT OF BREATH/WHEEZING Aspirin 81 mg 06/22/16 10:00 06/23/16 10:56 Ecotrin - PO 81 mg DAILY MYRTLE Administration Atorvastatin Calcium 10 mg 06/22/16 22:00 06/22/16 21:46 Lipitor - PO 10 mg HS MYRTLE Administration Clopidogrel Bisulfate 75 mg 06/22/16 10:00 06/23/16 10:56 Plavix - PO 75 mg DAILY MYRTLE Administration Divalproex Sodium 500 mg 06/22/16 10:00 06/23/16 10:56 Depakote *Er* - PO 500 mg BID MYRTLE Administration Donepezil HCl 10 mg 06/22/16 22:00 06/22/16 21:47 Aricept - PO 10 mg HS MYRTLE Administration Insulin Aspart 1 vial 06/22/16 07:00 06/23/16 11:39 Novolog Vial Sliding Scale - SQ 6 units ACHS MYRTLE Administration Protocol Lisinopril 20 mg 06/22/16 01:30 06/23/16 10:55 Prinivil PO 20 mg DAILY MYRTLE Administration Methylprednisolone Sodium Succinate 40 mg 06/23/16 22:00 Solu-Medrol - IVPB BID MYRTLE Nifedipine 60 mg 06/22/16 10:00 06/23/16 10:55 Procardia Xl - PO 60 mg DAILY MYRTLE Administration Pantoprazole Sodium 40 mg 06/22/16 10:00 06/23/16 10:55 Protonix - PO 40 mg DAILY MYRTLE Administration Phenytoin Sodium 100 mg 06/22/16 06:00 06/23/16 06:10 Dilantin - PO 100 mg TID MYRTLE Administration Fluticasone/Salmeterol 1 puff 06/23/16 22:00 Advair 100mcg/50mcg - IH BID [facility] Tamsulosin HCl 0.4 mg 06/22/16 10:00 06/23/16 10:55 Flomax - PO 0.4 mg DAILY MYRTLE Administration Home Medications Medication Instructions Recorded Clopidogrel Bisulfate [Clopidogrel] 75 mg PO DAILY 02/24/15 Simvastatin [Zocor -] 20 mg PO HS 02/24/15 Tamsulosin HCl 0.4 mg PO DAILY 02/24/15 Donepezil HCl [Aricept -] 10 mg PO HS 04/18/15 Lisinopril [Prinivil -] 20 mg PO DAILY 04/18/15 Albuterol Sulfate Inhaler - 1 - 2 inh PO Q4H PRN 08/15/15 [Ventolin HFA Inhaler -] Divalproex *ER* [Depakote *ER* -] 500 mg PO BID 08/15/15 Pantoprazole Sodium [Protonix] 40 mg PO DAILY 08/15/15 Phenytoin Na Extended [Dilantin -] 100 mg PO TID 05/20/16 Albuterol 2.5/Ipratropium 0.5 1 neb NEB Q4H #60 vial 06/05/16 [Duoneb -] Aspirin [ASA -] 81 mg PO DAILY 06/21/16 Nifedipine [Nifedipine ER] 60 mg PO DAILY 06/21/16 Albuterol 2.5/Ipratropium 0.5 1 amp NEB QIDR PRN #0 amp 06/23/16 [Duoneb -] Aspirin Coated [Ecotrin -] 81 mg PO DAILY 06/23/16 Nifedipine ER [Procardia XL -] 60 mg PO DAILY 06/23/16 Prednisone [Deltasone -] 10 mg PO DAILY #13 tablet 06/23/16 Salmeterol/Fluticasone [Advair 1 puff IH BID #120 inhaler 06/23/16 100Mcg/50Mcg -] ASSESSMENT/PLAN: Patient is a 70 year old male presented with past medical history of Dementia, CAD s/p cardiac stents x5, Hypertension, Hyperlipidemia, Diabetes (no medications), CVA (x2, last one 4 months ago), COPD, bowel and fecal incontinence to the ED accompanied with his daughter with the chief complaints of shortness of breath for 1 day. # Acute COPD exacerbation will switch from po Prednisone to IV Solu Medrol 40mg q8 IV , will reduce the dose to 40mg q12hr continue with IV Zithromax for one more day. # CAD s/p cardiac stent continue aspirin ;no issues with EC ASA # CVA continue Plavix/Aspirin # Hypertension lisinopril 20mg Daily and Nifedipine 60mg Daily continue #T2DM continue with SS with coverage , elevated BS will monitor # Seizure (last seizure in September,) continue Phenytoin 100mg TID # BPH continue Tamsulocin # Alzheimers continue Donepezil. DVT Px: SCds, heparin sq Visit type - Emergency Visit Emergency Visit: Yes ED Registration Date: 06/21/16 Care time: The patient presented to the Emergency Department on the above date and was hospitalized for further evaluation of their emergent condition. - New Patient This patient is new to me today: No - Critical Care Critical Care patient: No - Discharge Referral Physician Referral: Pradeep Meraz MD ([facility])
[2016-06-23] MEDS ORDERED: PT OWN MED DRAWER 7, Y5N ONE (20:57)
[2016-06-23] MEDS: FLUTICASONE/SALMETEROL 100 MCG/50 MCG DISKUS IH SCH (21:28)
[2016-06-23] MEDS: DONEPEZIL HCL 5 MG TABLET (FP) PO SCH (21:29)
[2016-06-23] MEDS: ATORVASTATIN CA 10 MG TABLET (FP) PO SCH (21:29)
[2016-06-23] MEDS: HEPARIN NA (PORCINE) 5,000 UNITS/ML 1ML VIAL SQ SCH (21:29)
[2016-06-23] MEDS ORDERED: CEFUROXIME AXETIL 250 MG TABLET PO SCH (22:00)
[2016-06-24] MEDS ORDERED: PT OWN MED DRAWER 7, Y5N ONE ×2 (05:38→10:06)
[2016-06-24] MEDS ORDERED: INSULIN (NOVOLOG) ASPART 100 UNITS/ML 10ML VIAL ONE (05:39)
[2016-06-24] MEDS: INSULIN SLIDING SCALE (NOVOLOG) 1 VIAL SQ SCH ×2 (06:03→11:14)
[2016-06-24] MEDS: PHENYTOIN NA EXTENDED 100 MG CAPSULE (FP) PO SCH ×2 (06:03→13:45)
[2016-06-24] MEDS: ALBUTEROL SO4 0.083% IH SOL 2.5 MG/3 ML VIAL.NEB. NEB SCH ×2 (06:30→11:10)
[2016-06-24] MEDS: methylPREDNISolone NA SUCC 40 MG/1 ML VIAL IVPB SCH (10:08)
[2016-06-24] MEDS: NIFEdipine E.R 60 MG TABLET (UD) PO SCH (10:08)
[2016-06-24] MEDS: PANTOPRAZOLE 40 MG TABLET (FP) PO SCH (10:08)
[2016-06-24] MEDS: HEPARIN NA (PORCINE) 5,000 UNITS/ML 1ML VIAL SQ SCH (10:08)
[2016-06-24] MEDS: TAMSULOSIN HCL 0.4 MG CAP.ER.24H (FP) PO SCH (10:08)
[2016-06-24] MEDS: CLOPIDOGREL BISULFATE 75 MG TABLET (FP) PO SCH (10:09)
[2016-06-24] MEDS: ASPIRIN COATED 81 MG TABLET.EC PO SCH (10:09)
[2016-06-24] MEDS: LISINOPRIL 20 MG TABLET (FP) PO SCH (10:09)
[2016-06-24] MEDS: FLUTICASONE/SALMETEROL 100 MCG/50 MCG DISKUS IH SCH (10:10)
[2016-06-24] MEDS: DIVALPROEX NA *ER* EXTEND REL 500 MG TABLET.SA (FP) PO SCH (10:10)
--- NOTE | 2016-06-24 10:27 | DS ---
Physical Exam: SUBJECTIVE: Patient seen and examined Patient resting in bed NAD, no acute events. afebrile and hemodynamically stable. Feels well, at baseline. Denies sob or cough. Denies f/c, n/v, chest pain, abd pain, diarrhea or dysuria. OBJECTIVE: Vital Signs Period Temp Pulse Resp BP Sys/Guerrero Pulse Ox Last 24 Hr 97.6 F-98.0 F 56-80 18-20 107-147/49-80 98 PHYSICAL EXAM GENERAL: The patient is awake, alert, and fully oriented, in no acute distress. HEAD: Normal with no signs of trauma. EYES: PERRL, extraocular movements intact, sclera anicteric, conjunctiva clear. ENT: moist mucous membranes. NECK: supple. LUNGS: diffusely moderately restricted air movement, no wheezes, no crackles, no accessory muscle use. HEART: Regular rate and rhythm, S1, S2 ABDOMEN: Soft, nontender, nondistended, normoactive bowel sounds EXTREMITIES: 2+ pulses, warm, well-perfused, no edema. NEUROLOGICAL: Cranial nerves II through XII grossly intact. Normal speech, gait not observed. PSYCH: Normal mood, normal affect. SKIN: Warm, dry LABS Laboratory Results - last 24 hr 06/23/16 06/23/16 06/23/16 11:37 16:38 21:12 POC Glucometer 299 278 281 06/24/16 06:01 POC Glucometer 184 HOSPITAL COURSE: Date of Admission:06/21/16 Patient is a 70 year old male with PMH of Dementia, CAD s/p cardiac stents x5, Hypertension, Hyperlipidemia, Diabetes (no medications), CVA (x2, last one 4 months ago), COPD, bowel and fecal incontinence, who presented due to shortness of breath x 1 day. Last ED visit for COPD exacerbation 06/05/2016, not admitted. On admission no leukocytosis or fever. CXR was unremarkable for acute process. Was hypoxic and placed on bipap. Was admitted with Acute on chronic COPD exacerbation. Was treated with IV steroids and abx as well as nebs. Steroids were tapered as patient improved and began breathing well on room air. Finished IV abx in hospital. Was sent home on PO steroid taper. He was started on new meds: duoneb, advair, procardia 60 d , asa 81 d Date of Discharge: 06/24/16 Minutes to complete discharge: 30 (na) Discharge Summary Reason For Visit: SOB Current Active Problems COPD with exacerbation (Acute) Shortness of breath (Acute) Condition: Stable - Instructions Diet, Activity, Other Instructions: you were admitted with COPD exacerbation Continue taking the steroid daily until finished (3 days of 30 mg/day, 3 days of 20 mg per day,then 3 days of 10 mg per day) Please return to hospital if symptoms worsen Referrals: Ziggy Weaver MD [Staff Physician] - Debbie Adam [Primary Care Provider] - Disposition: HOME - Home Medications Comprehensive Discharge Medication List: Ambulatory Orders Clopidogrel Bisulfate [Clopidogrel] 75 mg PO DAILY 02/24/15 Simvastatin [Zocor -] 20 mg PO HS 02/24/15 Tamsulosin HCl 0.4 mg PO DAILY 02/24/15 Donepezil HCl [Aricept -] 10 mg PO HS 04/18/15 Lisinopril [Prinivil -] 20 mg PO DAILY 04/18/15 Albuterol Sulfate Inhaler - [Ventolin HFA Inhaler -] 1 - 2 inh PO Q4H PRN Divalproex *ER* [Depakote *ER* -] 500 mg PO BID 08/15/15 Pantoprazole Sodium [Protonix] 40 mg PO DAILY 08/15/15 Phenytoin Na Extended [Dilantin -] 100 mg PO TID 05/20/16 Albuterol 2.5/Ipratropium 0.5 [Duoneb -] 1 neb NEB Q4H #60 vial 06/05/16 Aspirin [ASA -] 81 mg PO DAILY 06/21/16 Nifedipine [Nifedipine ER] 60 mg PO DAILY 06/21/16 Albuterol 2.5/Ipratropium 0.5 [Duoneb -] 1 amp NEB QIDR PRN #0 amp 06/23/16 Aspirin Coated [Ecotrin -] 81 mg PO DAILY 06/23/16 Nifedipine ER [Procardia XL -] 60 mg PO DAILY 06/23/16 Prednisone [Deltasone -] 10 mg PO DAILY #13 tablet 06/23/16 Salmeterol/Fluticasone [Advair 100Mcg/50Mcg -] 1 puff IH BID #120 inhaler This patient is new to me today: Yes Date on this admission: 06/24/16 Emergency Visit: Yes ED Registration Date: 06/21/16 Care time: The patient presented to the Emergency Department on the above date and was hospitalized for further evaluation of their emergent condition. Critical Care patient: No - Discharge Referral Referred to [facility] Med P.C.: Yes Physician Referral: Pradeep Meraz MD ([facility])
[2016-06-24 10:28] VITALS: BP 176/86; PULSE 66; TEMP 97.4
--- NOTE | 2016-06-24 15:33 | PN ---
Teaching Attending Note Name of Resident: Elvi Shaw ATTENDING PHYSICIAN STATEMENT I saw and evaluated the patient. I reviewed the resident's note and discussed the case with the resident. I agree with the resident's findings and plan as documented. Patient is going home, comfortable with no acute distress, no wheezing. No shortness of breath. Vital Signs Temperature 97.4 F L 06/24/16 10:00 Pulse Rate 66 06/24/16 10:00 Respiratory Rate 18 06/24/16 10:00 Blood Pressure 176/86 06/24/16 10:00 O2 Sat by Pulse Oximetry (%) 98 06/23/16 21:00 CBCD WBC 8.7 K/mm3 (4.0-10.0) 06/22/16 06:00 RBC 4.88 M/mm3 (4.00-5.60) 06/22/16 06:00 Hgb 15.0 GM/dL (11.7-16.9) 06/22/16 06:00 Hct 45.2 % (35.4-49) 06/22/16 06:00 MCV 92.7 fl (80-96) 06/22/16 06:00 MCHC 33.3 g/dl (32.0-35.9) 06/22/16 06:00 RDW 14.6 % (11.9-15.9) 06/22/16 06:00 Plt Count 249 K/MM3 (134-434) 06/22/16 06:00 MPV 8.4 fl (7.5-11.1) 06/22/16 06:00 CMP Sodium 142 mmol/L (136-145) 06/22/16 06:00 Potassium 4.2 mmol/L (3.5-5.1) 06/22/16 06:00 Chloride 104 mmol/L (98-107) 06/22/16 06:00 Carbon Dioxide 30 mmol/L (21-32) 06/22/16 06:00 Anion Gap 8 (8-16) 06/22/16 06:00 BUN 20 mg/dL (7-18) H D 06/22/16 06:00 Creatinine 1.3 mg/dL (0.7-1.3) 06/22/16 06:00 Creat Clearance w eGFR 54.26 (>60) 06/22/16 06:00 Random Glucose 195 mg/dL (74-106) H D 06/22/16 06:00 Calcium 8.7 mg/dL (8.5-10.1) 06/22/16 06:00 Total Bilirubin 0.5 mg/dL (0.2-1.0) D 06/22/16 06:00 AST 11 U/L (15-37) L D 06/22/16 06:00 ALT 22 U/L (12-78) 06/22/16 06:00 Alkaline Phosphatase 106 U/L (45-117) 06/22/16 06:00 Total Protein 6.7 g/dl (6.4-8.2) 06/22/16 06:00 Albumin 3.1 g/dl (3.4-5.0) L 06/22/16 06:00 CARDIAC ENZYMES Creatine Kinase 54 IU/L (39-308) 06/21/16 21:15 Troponin I < 0.02 ng/ml (0.00-0.05) 06/21/16 21:15 Home Medications Medication Instructions Recorded Clopidogrel Bisulfate [Clopidogrel] 75 mg PO DAILY 02/24/15 Simvastatin [Zocor -] 20 mg PO HS 02/24/15 Tamsulosin HCl 0.4 mg PO DAILY 02/24/15 Donepezil HCl [Aricept -] 10 mg PO HS 04/18/15 Lisinopril [Prinivil -] 20 mg PO DAILY 04/18/15 Albuterol Sulfate Inhaler - 1 - 2 inh PO Q4H PRN 08/15/15 [Ventolin HFA Inhaler -] Divalproex *ER* [Depakote *ER* -] 500 mg PO BID 08/15/15 Pantoprazole Sodium [Protonix] 40 mg PO DAILY 08/15/15 Phenytoin Na Extended [Dilantin -] 100 mg PO TID 05/20/16 Albuterol 2.5/Ipratropium 0.5 1 neb NEB Q4H #60 vial 06/05/16 [Duoneb -] Aspirin [ASA -] 81 mg PO DAILY 06/21/16 Nifedipine [Nifedipine ER] 60 mg PO DAILY 06/21/16 Albuterol 2.5/Ipratropium 0.5 1 amp NEB QIDR PRN #0 amp 06/23/16 [Duoneb -] Aspirin Coated [Ecotrin -] 81 mg PO DAILY 06/23/16 Nifedipine ER [Procardia XL -] 60 mg PO DAILY 06/23/16 Prednisone [Deltasone -] 10 mg PO DAILY #13 tablet 06/23/16 Salmeterol/Fluticasone [Advair 1 puff IH BID #120 inhaler 06/23/16 100Mcg/50Mcg -] ASSESSMENT AND PLAN: Patient is a 70 year old male presented with past medical history of Dementia, CAD s/p cardiac stents x5, Hypertension, Hyperlipidemia, Diabetes (no medications), CVA (x2, last one 4 months ago), COPD, bowel and fecal incontinence to the ED accompanied with his daughter with the chief complaints of shortness of breath for 1 day. # Acute COPD exacerbation will switch from IV steroid to po Prednisone, completed Zithromax , Also prescribed Advair to the patient. # CAD s/p cardiac stent continue aspirin ;no issues with EC ASA # CVA continue Plavix/Aspirin # Hypertension lisinopril 20mg Daily and Nifedipine 60mg Daily continue #T2DM continue with SS with coverage , elevated BS will monitor # Seizure (last seizure in September,) continue Phenytoin 100mg TID # BPH continue Tamsulocin # Alzheimers continue Donepezil. will discharge patient home with VNS
== END 2016-06-24 15:14 | disposition home or self-care (01) | DRG 140 ==
LOC: JER 17:48 → JERBED 22:34 → UNDOADMIN 23:17 → J7W 06-22 02:45
PROVIDERS: ADMIT Internal Medicine; ATTEND Internal Medicine
DX: J44.1 Chronic obstructive pulmonary disease with (acute) exacerbation (principal); I10 Essential (primary) hypertension; E78.5 Hyperlipidemia, unspecified; E11.9 Type 2 diabetes mellitus without complications; J45.909 Unspecified asthma, uncomplicated; Z86.73 Personal history of transient ischemic attack (TIA), and cerebral infarction without residual deficits; I25.10 Atherosclerotic heart disease of native coronary artery without angina pectoris; Z95.5 Presence of coronary angioplasty implant and graft; F03.90 Unspecified dementia, unspecified severity, without behavioral disturbance, psychotic disturbance, mood disturbance, and anxiety; N40.0 Benign prostatic hyperplasia without lower urinary tract symptoms; G20 Parkinson's disease; R15.9 Full incontinence of feces; Z87.891 Personal history of nicotine dependence
CPT/HCPCS: 36415; 36600; 71010-TC; 71020-TC; 80053; 82375; 82550; 82803; 83050; 83735; 83880; 84100; 84484; 85025; 85027; 85610; 85730; 87040; 87254; 87804; 93005; 93010; 94640; 99284-25; J1644